=== PATIENT | male | born 1990 | race African-American/Black ===

== ENCOUNTER 2023-08-06 18:37 | Emergency (ER) | payer OTHER, SELFPAY ==
[2023-08-06 19:20] VITALS: BP 133/88; PULSE 67; RESP 20; TEMP 36; O2SAT 99; BMI 25.0
--- NOTE | 2023-08-06 19:21 | ED_ITS ---
HPI - General Adult General Chief complaint: Nausea/Vomiting/Diarrhea Stated complaint: vomiting/dizziness past 2 days Time Seen by Provider: 08/07/23 00:07 Source: patient Mode of arrival: ambulatory Limitations: no limitations History of Present Illness ED Provider: watson JACOBO narrative: Patient otherwise healthy been nauseated vomiting for last 24 hours multiple times no diarrhea patient has smoked marijuana but never had similar problem in the past no fever no chills no urinary complaints Related Data Previous Rx's ?Medication ?Instructions ?Recorded ondansetron 4 mg disintegrating 4 mg PO Q6-8H PRN nausea and 08/07/23 tablet vomiting #10 tabs Allergies Allergy/AdvReac Type Severity Reaction Status Date / Time No Known Allergies Allergy Verified 08/06/23 19:22 Review of Systems 2 Review of Systems: Yes all other systems are reviewed and are negative [facility] Social History Social History Advance Directives: No Advance Directives Information Provided: No Do you have a plan to hurt others: No Plan Physical Exam ED Vital Signs: Vital Signs - 24 hr 08/06/23 19:20 08/07/23 00:26 Temperature 96.8 F 97.7 F Pulse Rate 67 64 Respiratory Rate 20 16 Blood Pressure 133/88 145/68 H Pulse Oximetry 99 98 Oxygen Delivery Method Room Air Room Air BMI result Body Mass Index 25.0 Appearance: Alert. Oriented X3. No acute distress. Eyes: No pallor or icterus ENT: Pharynx normal. Oral Mucosa moist Neck: Normal inspection. Neck supple. CVS: Normal heart rate and rhythm. Pulses normal. Respiratory: No respiratory distress. Equal air entry bilateral, no wheezing/rales/rhonchi Abdomen: Soft and nontender. Bowel sounds are present, no mass palpable, no CVA tenderness Skin: Skin warm and dry. Normal skin color. Normal skin turgor. Extremities: No lower extremity edema. No calf tenderness Neuro: Oriented X 3. Course Course Course Narrative: This is a Rapid Medical Examination (RME) performed by Jeimy Reid PA-C in triage. Full HPI, ROS, assessment and treatment plan per primary provider in the Main ED. 32 yo male here for eval of nausea and vomiting x2 days. poor PO intake secondary to vomiting. unable to keep anything down. endorses smoking marijuana however when he has these episodes, is not able to smoke. admits hot showers occasionally help his symptoms. no recent travel outside [place]. admits to assoc episode of dizziness while at work today. no chest pain, HARDING, vision changes, palpitations, syncope. denies fever/chills, diarrhea, abd pain. abd soft, ND/NT, no rebound or guarding. normoative bs x4 Plan: labs, viral serology Medications Administered Discontinued Medications Generic Name Dose Route Start Last Admin Trade Name Serenity PRN Reason Stop Dose Admin Ondansetron HCl 4 mg 08/07/23 00:18 08/07/23 00:52 Ondansetron Odt 4 Mg Tab.Rapdis TRANSLINGU 08/07/23 00:19 4 mg ONCE ONE Administration Medical Decision Making Medical Decision Making [facility] Narrative: Patient has acute vomiting likely viral no focal tenderness in the abdomen improved after Zofran while labs are stable will discharge patient home advised to drink plenty of fluids tried to stop cannabis Differential Diagnosis Differential Diagnoses: The differential diagnosis associated with the presentation includes Gastroenteritis/viral syndrome Lab Data [facility] Lab Attestation statement: I reviewed the patient's lab results. 08/06/23 19:42 08/06/23 19:42 Labs: Lab Results 08/06/23 Range/Units 19:42 WBC 12.2 H (4.8-10.8) X10*3/uL RBC 4.99 (4.60-5.80) X10*6/uL Hgb 15.1 (14.0-18.0) g/dl Hct 42.9 (42.0-52.0) % MCV 86.0 (80.0-98.0) fL MCH 30.3 (27.0-33.0) pg MCHC 35.2 (31.0-36.0) g/dl RDW 12.6 (11.0-16.0) % Plt Count 248 (160-400) X10*3/uL MPV 8.9 L (9.4-12.4) fL Immature Gran % (Auto) 0.3 (0.0-0.4) % Neut % (Auto) 81.6 H (45-73) % Lymph % (Auto) 12.1 L (20-40) % Pickett % (Auto) 5.3 (2-11) % Eos % (Auto) 0.3 (0-4) % Baso % (Auto) 0.4 (0-2) % Lymph # (Auto) 1.5 (1.2-4.9) X10*3/uL Pickett # (Auto) 0.6 (0.1-1.2) X10*3/uL Eos # (Auto) 0.0 (0.0-0.4) X10*3/uL Baso # (Auto) 0.1 (0.0-0.2) X10*3/uL Abs Immat Gran (auto) 0.04 H (0.00-0.03) X10*3/uL Absolute Neuts (auto) 9.9 H (2.0-8.3) x10*3/uL Absolute Nucleated RBC 0.000 (0.0-0.012) X10*3/uL Nucleated RBC % (auto) 0.0 (0.0-0.2) /100WBC Sodium 142 (135-145) mmol/L Potassium 3.8 (3.3-5.1) mmol/L Chloride 107 (96-108) mmol/L Carbon Dioxide 25 (22-29) mmol/L Anion Gap 14 (12-20) BUN 16 (9-16) mg/dL Creatinine 0.89 (0.5-1.4) mg/dL Estim Creat Clear Calc 103.6 Estimated GFR > 60 Random Glucose 91 (60-115) mg/dL Calcium 9.9 (8.4-10.2) mg/dL Magnesium 2.3 (1.6-2.6) mg/dL Total Bilirubin 0.5 (0.0-1.0) mg/dL AST 53 H (5-37) U/L ALT 38 (0-40) U/L Alkaline Phosphatase 53 (39-117) U/L Total Protein 7.5 (6.5-8.0) g/dL Albumin 4.8 (3.5-5.0) g/dL Lipase 15 (8-78) U/L Influenza Type A (PCR) NEGATIVE (Negative) Influenza Type B (PCR) NEGATIVE (Negative) RSV RNA Qual (PCR) NEGATIVE (Negative) SARS-CoV-2 RNA (RT-PCR) NEGATIVE (Negative) Discharge Plan Discharge Clinical Impression: Gastroenteritis Patient Disposition: Home, Self-Care Instructions: Acute Nausea and Vomiting (ED) Additional Instructions: Drink plenty of fluids Medicine for nausea as prescribed Report to ER if not better Prescriptions: New ondansetron 4 mg tablet,disintegrating 4 mg PO Q6-8H PRN (Reason: nausea and vomiting) Qty: 10 0RF Print Language: Yakut
[2023-08-06 19:45] LABS: MANUAL DIFF FLAG NO
[2023-08-06 19:47] LABS: Basophils Absolute Auto 0.1 X10*3/uL (0.0-0.2); Basophils Percent Auto 0.4 % (0-2); Eosinophils Percent Auto 0.3 % (0-4); Hematocrit 42.9 % (42.0-52.0); Hemoglobin 15.1 g/dl (14.0-18.0); Imm Gran Abs Auto 0.04 X10*3/uL (0.00-0.03); Imm Gran Pct Auto 0.3 % (0.0-0.4); Lymphocytes Absolute Auto 1.5 X10*3/uL (1.2-4.9); Lymphocytes Percent Auto 12.1 % (20-40); Mean Corpuscular HGB Conc 35.2 g/dl (31.0-36.0); Mean Corpuscular Hemoglobin 30.3 pg (27.0-33.0); Mean Platelet Volume 8.9 fL (9.4-12.4); Monocytes Absolute Auto 0.6 X10*3/uL (0.1-1.2); Monocytes Percent Auto 5.3 % (2-11); Neutrophils Absolute Auto 9.9 x10*3/uL (2.0-8.3); Neutrophils Percent Auto 81.6 % (45-73); Platelet Count 248 X10*3/uL (160-400); Red Blood Count 4.99 X10*6/uL (4.60-5.80); Red Cell Distribution Width 12.6 % (11.0-16.0); White Blood Count 12.2 X10*3/uL (4.8-10.8)
[2023-08-06 20:16] LABS: Alanine Aminotransferase 38 U/L (0-40); Albumin Level 4.8 g/dL (3.5-5.0); Alkaline Phosphatase 53 U/L (39-117); Anion Gap 14 (12-20); Aspartate Amino Transferase 53 U/L (5-37); Bilirubin Total 0.5 mg/dL (0.0-1.0); Blood Urea Nitrogen 16 mg/dL (9-16); Calcium 9.9 mg/dL (8.4-10.2); Carbon Dioxide 25 mmol/L (22-29); Chloride 107 mmol/L (96-108); Creatinine Clr Calc Pharmacy 103.6; Estimated Glomerular Filt Rate > 60; Glucose Random 91 mg/dL (60-115); Lipase 15 U/L (8-78); Magnesium 2.3 mg/dL (1.6-2.6); Potassium 3.8 mmol/L (3.3-5.1); Sodium 142 mmol/L (135-145); Total Protein 7.5 g/dL (6.5-8.0)
[2023-08-06 20:31] LABS: Influenza A PCR NEGATIVE (Negative); Influenza B PCR NEGATIVE (Negative); Resp Syncy Virus RNA Qual PCR NEGATIVE (Negative); SARS COV2 PCR INHOUSE NEGATIVE (Negative)
[2023-08-07 00:26] VITALS: BP 145/68; PULSE 64; RESP 16; TEMP 36.5; O2SAT 98
[2023-08-07] MEDS: Ondansetron ODT 4 MG TAB.RAPDIS TRANSLINGU (00:52)
== END 2023-08-07 02:21 | disposition home or self-care (01) ==
PROVIDERS: Physician Assistant Medical; Emergency Provider Internal Medicine
DX: K52.9 Noninfective gastroenteritis and colitis, unspecified (principal); R11.2 Nausea with vomiting, unspecified; F12.10 Cannabis abuse, uncomplicated; Z03.818 Encounter for observation for suspected exposure to other biological agents ruled out
CPT/HCPCS: 0241U; 36415; 80053; 83690; 83735; 85025; 99283

== ENCOUNTER 2024-04-28 12:20 | Outpatient (REF) | payer MEDICAID, SELFPAY ==
[2024-04-28 13:27] LABS: Hematocrit 43.4 % (42.0-52.0); Hemoglobin 14.9 g/dl (14.0-18.0); Mean Corpuscular HGB Conc 34.3 g/dl (31.0-36.0); Mean Corpuscular Hemoglobin 29.6 pg (27.0-33.0); Mean Corpuscular Volume 86.3 fL (80.0-98.0); Mean Platelet Volume 9.1 fL (9.4-12.4); Platelet Count 272 X10*3/uL (160-400); Red Blood Count 5.03 X10*6/uL (4.60-5.80); Red Cell Distribution Width 12.4 % (11.0-16.0)
[2024-04-28 13:40] LABS: Estimated Average Glucose 105 mg/dL; Hemoglobin A1C 134.2815 umol/L; Hemoglobin A1c % 5.3 % (<6.0)
[2024-04-28 14:13] LABS: Alanine Aminotransferase 34 U/L (0-40); Albumin Level 4.7 g/dL (3.5-5.0); Alkaline Phosphatase 51 U/L (39-117); Anion Gap 11 (12-20); Aspartate Amino Transferase 40 U/L (5-37); Bilirubin Direct 0.2 mg/dL (0.0-0.5); Bilirubin Total 0.6 mg/dL (0.0-1.0); Blood Urea Nitrogen 17 mg/dL (9-16); Calcium 9.7 mg/dL (8.4-10.2); Carbon Dioxide 28 mmol/L (22-29); Chloride 107 mmol/L (96-108); Cholesterol 138 mg/dL (<200); Estimated Glomerular Filt Rate > 60; Glucose Random 51 mg/dL (60-115); HDL Cholesterol 41 mg/dL (>40); LDL Cholesterol Calculated 88 mg/dL (<100); Potassium 3.9 mmol/L (3.3-5.1); Sodium 142 mmol/L (135-145); Total Protein 7.8 g/dL (6.5-8.0); Triglycerides 46 mg/dL (<150)
[2024-04-28 14:22] LABS: Free T4 (Free Thyroxine) 1.05 ng/dL (0.71-1.85); Thyroid Stimulating Hormone 1.64 uIU/mL (0.32-4.0)
--- OUTSIDE RECORDS SUMMARY | 2024-04-28 15:28 | XMS_ITS | Encounter Summary ---
Author Organization [employer] [facility] Address [address] [place] [address] [address] [place] [address] Care Team Providers Care Dust Puller Name Role Phone Unavailable Primary Care Provider Unavailabl e Reason for Visit * Reason Comments Pre-visit Planning (Unable to reach for PVP screening, LVM) Encounter Details Date Type Department Care Team (Late Contact Info) Description 04/16/2024 Patient Outreach [facility] [address] [place] [id number] Amy Ramos DO [address] [place], [place] [phone] Pre-visit Planning ((Unable to reach for PVP screening, LVM)) Social History Tobacco Use Types Packs/Day Years Used Date Smoking Tobacco: Never Assessed Sex and Gender Information Value Date Recorded Sex Assigned at Male 12/25/2021 10:38 AM EDT Legal Sex Male 10:38 AM EDT Gender Identity Male 12/25/2021 10:38 AM EDT Sexual Orientation Choose not to disclose 2021 10:38 AM EDT documented as of this encounter Progress Notes * Amalia Lentz - 04/16/2024 10:00 AM EST MICHOACANO Holland. Placed outbound call to patient to complete pre-visit planning. No answer at this time. Patient name and were not confirmed. CC left voicemail requesting return call. Direct contact information provided. documented in this encounter Plan of Treatment Upcoming Encounters Date Type Department Care Team (Late Contact Info) Description 07/03/2024 10:15 AM EDT Office Visit [facility] [address] [place] [id number] Amy Ramos DO [address] [place] [address] documented as of this encounter Visit Diagnoses Not on filedocumented in this encounter
--- OUTSIDE RECORDS SUMMARY | 2024-04-28 15:28 | XMS_ITS | Encounter Summary ---
Author Organization [employer] Address [address] [place] [address] [address] [place] [address] Care Team Providers Care Composition Roll Maker And Cutter Name Role Phone Amy Ramos Primary Care Provider Encounter Details Date Type Department Care Team (Latest Contact Info) Description 04/28/2024 Travel Social History Tobacco Use Types Packs/Day Years Used Date Smoking Tobacco: Never Smokeless Tobacco: Never Alcohol Use Standard Drinks/Week Comments Never 0 (1 standard drink = 0.6 oz pur e alcohol) Depression Answer Date Recorded Patient Health Questionnaire-9 Score 0 04/28/2024 Patient Health Questionnaire-9 Score 0 04/28/2024 Last PHQ-9: Questionnaire Data Not on file 0 04/28/2024 Housing Stability Answer Date Recorded What is your housing situation today? I have krista whalen 04/28/[address] you li ve. Do you have problems with any of the following? None of the above 04/28/2024 Food Insecurity Answer Date Recorded Within the past 12 months, y ou worried that your food would run out before you got money to buy more: Never True 04/28/2024 Within the past 12 months,th e food you bought just didn't last and you didn't have enough money to get more: Never True 05/2024 Transportation Answer Date Recorded In the past 12 months, has l ack of transportation kept you from medical appts, meetings, work or from getting things needed for daily living? No 04/28/2024 Utilities Answer Date Recorded In the past 12 months, has t he electric, gas, oil or water company threatened to shut off services in your home? No 04/28/2024 Depression Answer Date Recorded Patient Health Questionnaire-2 Score 0 04/28/2024 Internet Access Answer Date Recorded Internet Access Q1 Yes 04/28/2024 Internet Access Q2 Not on file 04/28/2024 Sex and Gender Information Value Date Recorded Sex Assigned at Male 12/25/2021 10:38 AM EDT Legal Sex Male 10:38 AM EDT Gender Identity Male 12/25/2021 10:38 AM EDT Sexual Orientation Choose not to disclose 2021 10:38 AM EDT documented as of this encounter Plan of Treatment Upcoming Encounters Date Type Department Care Team (Late st Contact Info) Description 07/03/2024 10:15 AM EDT Office Visit [facility] [address] [place] [address] Amy Ramos DO [address] [place] [address] documented as of this encounter Visit Diagnoses Not on filedocumented in this encounter Additional Health Concerns Assessment Noted Time PHQ-9 Depression Total Score: 0 04/29/19 10:44 AM EST documented as of this encounter Care Teams Composition Roll Maker And Cutter Relationship Specialty Start Date End Date Amy Ramos DO [address] [place] [id number] PCP - General Family Medicine 04/28/24 documented as of this encounter
--- OUTSIDE RECORDS SUMMARY | 2024-04-28 15:28 | XMS_ITS | Clinical Summary ---
Author Organization [facility] Address [address] [place] [address] Care Team Providers Care Sales Store Checker Name Role Phone Daljit Rader Primary Care Provider [phone] Source Comments PLEASE NOTE, if this patient is a minor, it may be UNLAWFUL to discuss sensitive information that is contained in these records (such as FAMILY PLANNING, MENTAL HEALTH or SUBSTANCE ABUSE) with the minor patient's parent or other person without the patient's specific authorization.[facility] Allergies No known active allergies Medications hydrOXYzine (ATARAX) 10 mg tabletIndication s:Itching Take 1 Tab by mouth 3 (three) times daily as needed for itching. 40 Tab 0 09/17/2014 Active loratadine (CLARITIN) 10 mg tabletIndication s:Itching Take 1 Tab by mouth once daily as needed for allergies. 30 Tab 2 09/17/2014 Active guaiFENesin 400 mg tabIndications:V iral upper respiratory tract infection Take 1 Tab by mouth every 4 (four) hours as needed for cough 18 Tab 06/16/2018 Active naproxen (NAPROSYN) 250 mg tabletIndication s:Viral upper respiratory tract infection Take 1 Tab by mouth 2 (two) times daily with a meal 20 Tab 06/16/2018 Active phenazopyridine (PYRIDIUM) 100 mg tabletIndication s:Dysuria Take 1 Tablet by mouth 2 (two) times daily 10 Tablet 02/29/2020 Active Active Problems No known active problems Resolved Problems Problem Noted Date Diagnosed Date Resolved Date Chlamydia infection 04/08/2014 05/29/19 19 Marijuana abuse 03/26/2014 05/28/2018 Dysuria 03/26/2014 05/28/2018 Family History Medical History Relation Name Comments Diabetes Maternal Grandmother Depression Mother Diabetes Paternal Grandmother Relation Name Status Comments Maternal Grandmother Mother Paternal Grandmother Social History Tobacco Use Types Packs/Day Years Used Date Smoking Tobacco: Former Smokeless Tobacco: Never Alcohol Use Standard Drinks/Week Comments Yes 0 (1 standard drink = 0.6 oz pur e alcohol) socially Social Connections Answer Date Recorded Social Connections and Isolation 0 10/19/2018 Financial Resource Strain Answer Date R ecorded Financial Resource Strain 0 2018 Stress Answer Date Recorded Stress 0 10/19/2018 Physical Activity Answer Date Recorded Physical Activity 0 10/19/2018 Food Insecurity Answer Date Recorded Food 0 10/19/2018 Transportation Needs Answer Date Record ed Transportation 0 10/19/2018 Housing Stability Answer Date Recorded Housing 0 10/19/2018 Safety and Environment Answer Date Kee rded Safety 0 10/19/2018 Utilities Answer Date Recorded Utilities 0 10/19/2018 Employment Answer Date Recorded Employment 0 10/19/2018 Sex and Gender Information Value Date Recorded Sex Assigned at Male 01/02/2017 12:04 PM PST Legal Sex Male 11:58 AM PST Gender Identity Male 01/02/2017 12:04 PM PST Sexual Orientation Straight 01/02/2017 12 :04 PM PST Occupation Industry Job Start Date Job End Date unemployed Not on file Not on file Not on file Last Filed Vital Signs Vital Sign Reading Time Taken Comments Blood Pressure 112/80 02/29/2020 1:22 PM EST Pulse 66 02/29/2020 1:22 PM EST Temperature 36.8 ??C (98.3 ??F) 02/29/2020 1:22 PM ES T Respiratory Rate 16 02/29/2020 1:22 PM EST Oxygen Saturation 97% 08/17/2019 2:55 PM EDT Inhaled Oxygen Concentration - - Weight 68.5 kg (151 lb) 02/29/2020 1:22 PM EST Height 165.1 cm (5' 5 ) 02/29/2020 1:22 PM EST Body Mass Index 25.13 02/29/2020 1:22 PM EST Plan of Treatment Health Maintenance Due Date Last Done Comments Tobacco Screening 1990 Imm-DTaP/Tdap/Td (1 - Tdap) 2009 Annual Preventive Care Visit 08/16/2020, 05/28/2018, 01/02/2017, Additional history exists Hypertension Screening (#1) 02/28/2023 03/26/2014 [id number] ( season) 2023 Imm-Influenza (#1) 2023 03/26/2014 (Declined) Alcohol and Drug Screen 02/26/2024 08/17/19 20, 05/28/2018, 01/02/2017, Additional history exists Depression Annual Screen 02/26/2024 020, 05/28/2018, 01/02/2017, Additional history exists HIV Screening Completed 08/20/2019, 12/27, 06/11/2014, Additional history exists Hepatitis C Screening Completed 08/20/2019, 015 Procedures Procedure Name Priority Date/Time Associated Diagnosis Comments ANTIBODY HIV-1&HIV-2 SINGLE RESULT Routine 08/20/2019 1:10 PM EDT Routine adult health maintenance Exposure to STD HEPATITIS A,B,C PANEL Routine 08/20/2019 1:10 PM EDT Routine adult health maintenance Exposure to STD from Last 3 Months or Most Recently Relevant to Health Maintenance Results * (ABNORMAL) HEPATITIS A,B,C PANEL (08/20/2019 1:10 PM EDT) HEPATITIS B SURFACE ANTIBODY POSITIVE(A) NEGATIVE [facility] HEPATITIS B SURFACE ANTIGEN NEGATIVE NEGATIVE [facility] Comment: Over the counter supplements containing high doses of biotin may interfere with this assay. ??If interference is suspected, patients shoud be retested after refraining from biotin supplements for 72 hours. HEPATITIS C VIRUS DIAGNOSTIC NEGATIVE NEGATIVE [facility] HEPATITIS B CORE ANTIBODY NEGATIVE NEGATIVE [facility] HEPATITIS A ANTIBODY TOTAL NEGATIVE NEGATIVE [facility] Comment: Over the counter supplements containing high doses of biotin may interfere with this assay. ??If interference is suspected, patients shoud be retested after refraining from biotin supplements for 72 hours. Blood specimen (specimen) Blood / Unknown 08/20/2019 1:10 PM EDT 08/20/2019 3:01 PM EDT [facility] 08/20/2019 3:55 PM EDT [employer], [place] [address] Media/Instructional Designer - Elda Landis MD PT ID [id number] ORD# [id number] [facility] - BLOOD DRAW Edited Result - Final Performing Organization Address City/[facility]/ZIP Co de Phone Number [address] [address], [place] [phone] * HIV-1 & HIV-2 ANTIBODIES (08/20/2019 1:10 PM EDT) [facility] HIV 1 AND 2 ANTIBODY SCREEN NEGATIVE NEGATIVE [facility] Comment: This assay is a 4th generation assay allowing for earlier detection of HIV infection by detecting the presence of the HIV-1 p24 antigen as well as the traditional antibodies to HIV type 1 (including group O) and type 2. ??Use of a 4th generation assay is the current CDC recommendation for HIV screening. Blood specimen (specimen) Blood / Unknown 08/20/2019 1:10 PM EDT 08/20/2019 3:01 PM EDT [facility] 08/20/2019 4:24 PM EDT [employer], a member of [address] [address] Media/Instructional Designer - Elda Landis MD PT ID [id number] ORD# [id number] [facility] - BLOOD DRAW Edited Result - Final [address] [address], [place] [phone] from Last 3 Months or Most Recently Relevant to Health Maintenance Insurance [place] MEDICAID Care Teams Sales Store Checker Relationship Specialty Start Date End Date Daljit Rader PA [address] [place] [address] PCP - General Internal Medicine 11/01/16
--- OUTSIDE RECORDS SUMMARY | 2024-04-28 15:28 | XMS_ITS | Clinical Summary ---
Author Organization [employer] [facility] Address [address] [place] [address] [address] [place] [address] Care Team Providers Care Helmet Hat Brim Cutter Name Role Phone Amy Ramos DO Primary Care Provider Allergies No known active allergies Medications omeprazole OTC (PriLOSEC OTC) 20 MG EC tablet Take 1 tablet (20 mg) by mouth before breakfast and before evening meal. Do not crush, chew, or split. 60 tablet 3 04/29/19 25 026 Active pantoprazole (ProtoNix) 40 MG EC tablet Take 40 mg by mouth. 12/11/19 24 025 Discontinued Active Problems Problem Noted Date Diagnosed Date BMI 26.0-26.9,adult 04/28/2024 Chronic gastroesophageal reflux disease 04/29/19 25 Encounters Date Type Department Care Team Description 04/28/2024 10:45 AM EST Office Visit [facility] [address] [place] [phone] Amy Ramos DO Routine history and physical examination of adult (Primary Dx); Chronic GERD; BMI 26.0-26.9,adult; Dietary counseling; Exercise counseling; Encounter for immunization 04/28/2024 Telephone [facility] [address] [place] [address] [phone] Amy Ramos DO critical result 04/28/2024 Travel 04/16/2024 Patient Outreach [facility] [address] [place] [address] [phone] Amy Ramos DO Pre-visit Planning ((Unable to reach for PVP screening, LVM)) 03/13/2024 Telephone [facility] [address] [place] [address] [phone] Elis Mesa MA New Patient Appt. 03/13/2024 Travel 03/03/2024 Telephone [facility] [address] [place] [address] Lj Contreras MD New patient appt. from Last 3 Months Immunizations Name Administration Dates Next Due Influenza Whole 11/01/2011 Influenza, IIV3, injectable 12/24/2005 Td (adult), unspecified 04/05/2003 Tdap 04/28/2024 Family History Medical History Relation Name Comments Diabetes Father Hypertension Father Stomach cancer Father Diabetes Mother Hypertension Mother Cancer Paternal Grandmother Relation Name Status Comments Father Mother Paternal Grandmother Social History Tobacco Use Types Packs/Day Years Used Date Smoking Tobacco: Never Smokeless Tobacco: Never Tobacco Cessation:Counseling Given: Not Answered Alcohol Use Standard Drinks/Week Comments Never 0 (1 standard drink = 0.6 oz pur e alcohol) Depression Answer Date Recorded Patient Health Questionnaire-9 Score 0 04/28/2024 Patient Health Questionnaire-9 Score 0 04/28/2024 Last PHQ-9: Questionnaire Data Not on file 0 04/28/2024 Housing Stability Answer Date Recorded What is your housing situation today? I have krista marlee 04/28/[address] you li [...] not to disclose 2021 10:38 AM EDT Last Filed Vital Signs Vital Sign Reading Time Taken Comments Blood Pressure 128/60 04/28/2024 10:42 AM EST Pulse 100 04/28/2024 10:42 AM EST Temperature 36.8 ??C (98.3 ??F) 04/28/2024 10:[address] Respiratory Rate 21 04/28/2024 10:42 AM EST Oxygen Saturation 99% 04/28/2024 10:42 AM EST Inhaled Oxygen Concentration - - Weight 68.7 kg (151 lb 8 oz) 04/28/2024 10:42 AM EST Height 160 cm (5' 3 ) 04/28/2024 10:42 AM EST Body Mass Index 26.84 04/28/2024 10:42 AM EST Plan of Treatment Upcoming Encounters Date Type Department Care Team (Late st Contact Info) Description 07/03/2024 10:15 AM EDT Office Visit [facility] [address] [place] [phone] Amy Ramos DO [address] [place] [address] Health Maintenance Due Date Last Done Comments HIV Screening 1990 Family Planning (PISQ) 2005 Hepatitis C Screening 2008 Hepatitis B Vaccines (1 of 3 - 19+ 3-dose series) 2009 COVID-19 Vaccine (2023-2 5 season) 2023 08/05/2020, 07/08/2020 Influenza Vaccine (#1) 2023 2, 12/24/2005 Alcohol/Substance Use Screening 04/28/2025 04/28/2024 Depression Screening 04/28/2025 04/28/2024, 04/28/2024 SDOH Screening 04/28/2025 04/28/2024 Tobacco Screening 04/28/2025 04/28/2024 DTaP/Tdap/Td Vaccines (3 - T d or Tdap) 04/28/2034 04/28/2024, 04/05/2003 Zoster Vaccines (1 of 2) 2040 RSV Patients and Patients Aged 60 years or older (1 - 1-dose 75+ series) 2065 HIB Vaccines Aged Out No longer eligi ble based on patient's age to complete this topic HPV Vaccines Aged Out No longer eligi ble based on patient's age to complete this topic Hepatitis A Vaccines Aged Out No long er eligible based on patient's age to complete this topic IPV Vaccines Aged Out No longer eligi ble based on patient's age to complete this topic Meningococcal Vaccine Aged Out No elizabeth yolanda eligible based on patient's age to complete this topic Pneumococcal Vaccine: Pediatrics (0 to 5 Years) and At-Risk Patients (6 to 49) Years) Aged Out No longer eligible b ased on patient's age to complete this topic RSV under 20 months Aged Out No longe r eligible based on patient's age to complete this topic Rotavirus Vaccines Aged Out No longer eligible based on patient's age to complete this topic Procedures Procedure Name Priority Date/Time Associated Diagnosis Comments BASIC METABOLIC PANEL Routine 04/28/2024 12:27 PM EST Routine history and physical examination of adult Chronic GERD BMI 26.0-26.9,adult CBC Routine 04/28/2024 12:27 PM EST Routine history and physical examination of adult Chronic GERD BMI 26.0-26.9,adult HEMOGLOBIN A1C Routine 04/28/2024 12:27 PM EST Routine history and physical examination of adult Chronic GERD BMI 26.0-26.9,adult HEPATIC FUNCTION PANEL Routine 04/28/2024 12:27 PM EST Routine history and physical examination of adult Chronic GERD BMI 26.0-26.9,adult VITAMIN D,25-OH,TOTAL,IA Routine 04/28/2024 12:27 PM EST Routine history and physical examination of adult Chronic GERD BMI 26.0-26.9,adult TSH Routine 04/28/2024 12:27 PM EST Routine history and physical examination of adult Chronic GERD BMI 26.0-26.9,adult LIPID PANEL, STANDARD Routine 04/28/2024 12:27 PM EST Routine history and physical examination of adult Chronic GERD BMI 26.0-26.9,adult T4, FREE Routine 04/28/2024 12:27 PM EST Routine history and physical examination of adult Chronic GERD BMI 26.0-26.9,adult from Last 3 Months Results * Vitamin D, 25-Hydroxy, Total, Immunoassay (04/28/2024 12:27 PM EST) Vitamin D 25-OH Total 33.0 >30 ng/mL [facility] Comment:Health Based Referen ce Values*< 20 ng/mL Lkyiqntvl08-04 ng/mL Insufficient> 30 ng/mL Sufficient*Tyrone SIEGEL. N Engl J Med. 2007;357:266-280Care must be taken in interpreting Vitamin D results fromdifferent laboratories and methodologies. Published datademonstrated that results from patients undergoinghemodialysis may show a negative bias when tested withvarious automated 25-OH vitamin D assays when compared toLC-MS/MS.When testing samples from patients whose predominant form ofVitamin D is Vitamin D2, such as patients receiving VitaminD2 supplementation, results that are subtherapeutic shouldbe confirmed with another method such as LC-MS/MS. Blood Venous blood specimen / Unknown 04/28/2024 12:27 PM EST 04/28/2024 1:12 PM EST us Amy Ramos DO LAB BLOOD ORDERABLES Final R esult [facility] [address] [place] [phone] * (ABNORMAL) CBC (04/28/2024 12:27 PM EST) White Blood Count 10.0 4.8 - 10.8 X10*3/uL [facility] Red Blood Count 5.03 4.60 - 5.80 X10*6/uL [facility] Hemoglobin 14.9 14.0 - 18.0 g/dl [facility] Hematocrit 43.4 42.0 - 52.0 % [facility] Mean Corpuscular Volume 86.3 80.0 - 98.0 fL [facility] Mean Corpuscular Hemoglobin 29.6 27.0 - 33.0 pg [facility] Mean Corpuscular HGB Conc 34.3 31.0 - 36.0 g/dl [facility] Red Cell Distribution Width 12.4 11.0 - 16.0 % [facility] Platelet Count 272 160 - 400 X10*3/uL [facility] Mean Platelet Volume 9.1(L) 9.4 - 12.4 fL [facility] NRBC Pct Auto 0.0 0.0 - 0.2 /100WBC [facility] NRBC Abs Auto 0.000 0.0 - 0.012 X10*3/uL [facility] Blood Venous blood specimen / Unknown 04/28/2024 12:27 PM EST 04/28/2024 1:12 PM EST Amy Ramos H2scan LAB BLOOD ORDERABLES Final R esult Performing Organization Address City/[facility]/ZIP Co de Phone Number [facility] [address] [place] [phone] * TSH (04/28/2024 12:27 PM EST) Thyroid Stimulating Hormone 1.64 0.32 - 4.0 uIU/mL [facility] Comment:TSH 3rd Generation ( [facility]) Blood Venous blood specimen / Unknown 04/28/2024 12:27 PM EST 04/28/2024 1:12 PM EST Amy Ramos H2scan LAB BLOOD ORDERABLES Final R esult [facility] [address] [place] [phone] * T4, Free (04/28/2024 12:27 PM EST) Free T4 (Free Thyroxine) 1.05 0.71 - 1.85 ng/dL [facility] Blood Venous blood specimen / Unknown 04/28/2024 12:27 PM EST 04/28/2024 1:12 PM EST Amy Ramos LAB BLOOD ORDERABLES Final R esult Performing Organization Address City/[facility] Co de Phone Number [facility] [address] [place] [phone] * Hemoglobin A1c (04/28/2024 12:27 PM EST) Hemoglobin A1c 5.3 <6.0 % [facility] Comment:Hemoglobin A1C Refer ence Range Adults: 4.8 - 6.0 % Non diabetic: < 6.0 % Goal: < 7.0 %Additional Action Suggested: > 8.0 %Note: Hemoglobin A1c results are invalid for patients with abnormal amounts of HbF. Blood transfusions may impact the HbA1c concentration in the patient sample. Estimated Average Glucose 105 mg/dL [facility] Comment:eAG = Estimated ave rage glucose which is %A1C expressed asaverage glucose, using the formula of the [id number] Glucose study (ADAG), Diabetes Care, Vol.31,#8,2007 Blood Venous blood specimen / Unknown 04/28/2024 12:27 PM EST 04/28/2024 1:12 PM EST Amy Ramos DO LAB BLOOD ORDERABLES Final R esult Performing Organization Address City/[facility] Co de Phone Number [facility] [address] [place] [phone] * (ABNORMAL) Hepatic Function Panel (04/28/2024 12:27 PM EST) Pathologist [facility] Bilirubin, Total 0.6 0.0 - 1.0 mg/dL [facility] Bilirubin, Direct 0.2 0.0 - 0.5 mg/dL [facility] Aspartate Amino Transferase 40(H) 5 - 37 U/L [facility] Alanine Aminotransferase 34 0 - 40 U/L [facility] Total Protein 7.8 6.5 - 8.0 g/dL [facility] Albumin Level 4.7 3.5 - 5.0 g/dL [facility] Alkaline Phosphatase 51 39 - 117 U/L [facility] Blood Venous blood specimen / Unknown 04/28/2024 12:27 PM EST 04/28/2024 1:12 PM EST us Amy Ramos DO LAB BLOOD ORDERABLES Final R esult [facility] [address] [place] [phone] * Lipid Panel, Standard (04/28/2024 12:27 PM EST) Triglycerides 46 <150 mg/dL [facility] Comment:Desirable Triglyceri de: less than 150 mg/dLBorderline High Triglyceride 150-199 mg/dLHigh Triglyceride: 200-499 mg/dLVery High Triglyceride: greater than or equal to 5OO mg/dL Cholesterol 138 <200 mg/dL [facility] Comment:Desirable Cholestero l: less than 200 mg/dLBorderline High Cholesterol: 200-239 mg/dLHigh Cholesterol: greater than 239 mg/dL LDL Cholesterol Calculated 88 <100 mg/dL [facility] Comment:Desirable LDL: less than 100 mg/dLNear Optimal/Above Optimal LDL: 110- 129 mg/dLBorderline High LDL: 130-159 mg/dLHigh LDL: 160-189 mg/dLVery High LDL: greater than or equal to 190 mg/dL HDL Cholesterol 41 >40 mg/dL [facility] Comment:Desirable HDL: great er than 40 mg/dL Note: This HDL assay may give artificially low results in patients with liver disease. Blood Venous blood specimen / Unknown 04/28/2024 12:27 PM EST 04/28/2024 1:12 PM EST Amy Ramos DO LAB BLOOD ORDERABLES Final R esult Performing Organization Address [facility]/ZIP Co de Phone Number [facility] [address] [place] [phone] * (ABNORMAL) Basic Metabolic Panel (04/28/2024 12:27 PM EST) Sodium 142 135 - 145 mmol/L [facility] Potassium 3.9 3.3 - 5.1 mmol/L [facility] Chloride 107 96 - 108 mmol/L [facility] Carbon Dioxide 28 22 - 29 mmol/L [facility] Anion Gap 11(L) 12 - 20 [facility] Urea Nitrogen (BUN) 17(H) 9 - 16 mg/dL [facility] Creatinine, Serum 0.84 0.5 - 1.4 mg/dL [facility] Estimated Glomerular Filt Rate >60 [facility] Comment:Chronic Kidney Disea se: Estimated GFR < 60 mL/min/1.16y4Loigxo Kidney Disease: Estimated GFR < 15 mL/min/1.73m2 Glucose 51(LL) 60 - 115 mg/dL [facility] Comment:Critical value for G LUCOSE Results called to and read backby: DEIDRA Moore Person calling: DRAKE Date: 04/28/24Time:1412 Calcium 9.7 8.4 - 10.2 mg/dL [facility] Blood Venous blood specimen / Unknown 04/28/2024 12:27 PM EST 04/28/2024 1:12 PM EST Amy Ramos DO LAB BLOOD ORDERABLES Final R esult Performing Organization Address [facility]/ZIP Co de Phone Number [facility] [address] [place] [phone] from Last [address] [place] [id number] [facility] [address] [place] [address] [id number] [place] [address] [id number] [place] [phone] Care Teams Helmet Hat Brim Cutter Relationship Specialty Start Date End Date Amy Ramos DO [address] [place] [phone] PCP - General Family Medicine 04/28/24
--- OUTSIDE RECORDS SUMMARY | 2024-04-28 15:28 | XMS_ITS | Encounter Summary ---
Author Organization [employer] Address [address] [place] [address] [address]t [place] [address] Care Team Providers Care Agency Sales Development Associate Name Role Phone Amy Ramos DO Primary Care Provider [phone] Reason for Visit * Reason Onset Date Comments critical result 04/28/2024 Encounter Details Date Type Department Care Team ([facility] st Contact Info) Description 04/28/2024 Telephone [facility] [address] [place], [place] [phone] Amy Ramos DO [address] [place], [place] [phone] critical result Social History Tobacco Use Types Packs/Day Years [...] AM EDT documented as of this encounter Miscellaneous Notes * Telephone Encounter - Erica Almeida RN - 04/28/2024 3:01 PM EST Discussed critical result of BG [address] Ramos. [address]. Ramos patient not a diagnosed diabetic, nor is he on BG lowering medications. Plan to re- attempt contacting patient tomorrow morning. Will re-task for re-attempt. * Telephone Encounter - Erica Almeida RN - 04/28/2024 2:35 PM EST Call placed to patient's emergency contact Marisela (Patient's mother) [phone]. Marisela reports she does not live with her son. She is not listed on HIPAA. Advised patient's Mom to have patient return clinic's call when she speaks to him. Finjan interpretor ID [id number] Brandin * Telephone Encounter - Erica Almeida RN - 04/28/2024 2:32 PM EST Call placed to patient [phone]. No answer, voicemail left requesting call back. * Telephone Encounter - Winter Hoskins RN - 04/28/2024 2:13 PM EST TC from Flore[facility] at [facility] lab. Critical result - glucose 51. documented in this encounter Plan of Treatment Upcoming Encounters Date Type Department Care Team (Late st Contact Info) Description 07/03/2024 10:15 AM EDT Office Visit [facility] [address] [place] [address] Amy Ramos DO [address] [place] [address] documented as of this encounter Visit Diagnoses Not on filedocumented in this encounter Additional Health Concerns Assessment Noted Time PHQ-9 Depression Total Score: 0 04/29/19 10:44 AM EST documented as of this encounter Care Teams Agency Sales Development Associate Relationship Specialty Start Date End Date Amy Ramos DO [address] [place] [address] PCP - General Family Medicine 04/28/24 documented as of this encounter
--- OUTSIDE RECORDS SUMMARY | 2024-04-28 15:28 | XMS_ITS | Clinical Summary ---
Author Organization [facility] Address [address] [place] [address] Care Team Providers Care Etcher Aircraft Name Role Phone Unavailable Primary Care Provider Unavailabl e Social History Tobacco Use Types Packs/Day Years Used Date Smoking Tobacco: Never Assessed Sex and Gender Information Value Date Recorded Sex Assigned at Not on file Legal Sex Male 4:34 AM EST Gender Identity Not on file Sexual Orientation Not on file Plan of Treatment Health Maintenance Due Date Last Done Comments DTaP,Tdap,and Td Vaccines (1 - Tdap) 2009 Hepatitis B Vaccines (1 of 3 - 19+ 3-dose series) 2009 COVID-19 Vaccine ( - 2023-2 5 season) 2023 Influenza Vaccine (#1) 2023 HIB Vaccines Aged Out No longer eligi [...] on patient's age to complete this topic MMR Vaccines Aged Out No longer eligi ble based on patient's age to complete this topic Meningococcal ACWY Vaccine Aged Out N o longer eligible based on patient's age to complete this topic Meningococcal B Vacine Aged Out No lo nger eligible based on patient's age to complete this topic Pneumococcal Vaccine: Pediat rics (0 to 5 Years) and At-Risk Patients (6 to 64 Years) Aged Out No longer eligible b ased on patient's age to complete this topic RSV Immunization Patients Un david 20 months Aged Out No longer eligible b ased on patient's age to complete this topic Varicella Vaccines Aged Out No longer eligible based on patient's age to complete this topic
--- OUTSIDE RECORDS SUMMARY | 2024-04-28 15:28 | XMS_ITS | Encounter Summary ---
Author Organization [facility] Address [address] [place] [address] [address] [place] [address] Care Team Providers Care Pattern Technician Name Role Phone Amy Ramos DO Primary Care Provider [phone] Reason for Referral * Consultation (Urgent) - Pending Review Specialty Diagnoses / Procedures Referred By Jus lama Referred To Contact Gastroenterology Diagnoses Chronic GERD Amy Ramos DO [address] [place] [address] Phone: tel: fax: Referral ID Status Reason Start Date Expiration Date Visits Requested Visits Authorized [id number] Pending Review Specialty Services Required 04/28/2024 04/28/2025 1 1 Encounter Details Date Type Department Care Team (Late st Contact Info) Description 04/28/2024 10:45 AM EST Office Visit [facility] [address] [place] [address] Amy Ramos DO [address] [place] [address] Routine history and physical examination of adult (Primary Dx); Chronic GERD; BMI 26.0-26.9,adult; Dietary counseling; Exercise counseling; Encounter for immunization Social History Tobacco Use Types Packs/Day Years [...] AM EDT documented as of this encounter Last Filed Vital Signs Vital Sign Reading [...] Mass Index 26.84 04/28/2024 10:42 AM EST documented in this encounter Plan of Treatment Upcoming Encounters Date Type Department Care Team (Late st Contact Info) Description 07/03/2024 10:15 AM EDT Office Visit [facility] [address] [place] [address] Amy Ramos DO [address] [place] [address] Scheduled Orders Name Type Priority Associated Diagnoses Orde r Schedule Hepatitis B surface antigen, EIA Lab Routine Routine history and physical examination of adult Chronic GERD BMI 26.0-26.9,adult Expected: 04/28/2024 (Approximate), Expires: 04/28/2025 Chlamydia/N. Gonorrhoeae RNA, TMA, Urogenitial Microbiology Routine Routine history and physical examination of adult Chronic GERD BMI 26.0-26.9,adult Ordered: 04/28/2024 HIV-1/2 Antigen and Antibodies, Fourth Generation, with Reflexes Lab Routine Routine history and physical examination of adult Chronic GERD BMI 26.0-26.9,adult Expected: 04/28/2024 (Approximate), Expires: 04/28/2025 Hepatitis C Antibody with Reflex to HCV, RNA, Quantitative, Real-Time PCR Lab Routine Routine history and physical examination of adult Chronic GERD BMI 26.0-26.9,adult Expected: 04/28/2024, Expires: 04/28/2025 RPR (Monitor) with Reflex to??Titer Lab Routine Routine history and physical examination of adult Chronic GERD BMI 26.0-26.9,adult Expected: 04/28/2024, Expires: 04/28/2025 Hepatitis B Surface Antibody, Qualitative Lab Routine Routine history and physical examination of adult Chronic GERD BMI 26.0-26.9,adult Expected: 04/28/2024 (Approximate), Expires: 04/28/2025 Hepatitis A Antibody, Total Lab Routine Routine history and physical examination of adult Chronic GERD BMI 26.0-26.9,adult Expected: 04/28/2024 (Approximate), Expires: 04/28/2025 Hepatitis B Core Antibody, Total Lab Routine Routine history and physical examination of adult Chronic GERD BMI 26.0-26.9,adult Expected: 04/28/2024 (Approximate), Expires: 04/28/2025 Helicobacter pylori, Urea Breath Test Lab Routine Chronic GERD Expected: 04/28/2024 (Approximate), Expires: 04/28/2025 Scheduled Referrals Name Type Priority Associated Diagnoses Order Schedule Referral to Gastroenterology Outpatient Referral Urgent Chronic GERD Expected: 04/28/2024 (Approximate), Expires: 04/28/2025 documented as of this encounter Procedures Procedure Name Priority Date/Time Associated Diagnosis Comments VITAMIN D,25-OH,TOTAL,IA Routine 04/28/2024 12:27 PM EST [...] examination of adult Chronic GERD BMI 26.0-26.9,adult BASIC METABOLIC PANEL Routine 04/28/2024 12:27 PM EST Routine history and physical examination of adult Chronic GERD BMI 26.0-26.9,adult documented in this encounter Results * (ABNORMAL) Basic Metabolic Panel (04/28/2024 12:27 PM EST) [facility] Sodium 142 135 - 145 mmol/L [facility] Potassium 3.9 3.3 - 5.1 mmol/L [facility] Chloride 107 96 - 108 mmol/L [facility] Carbon Dioxide 28 22 - 29 mmol/L [facility] Anion Gap 11(L) 12 - 20 [facility] Urea Nitrogen (BUN) 17(H) 9 - 16 mg/dL [facility] Creatinine, Serum 0.84 0.5 - 1.4 mg/dL [facility] Estimated Glomerular Filt Rate >60 [facility] Comment:Chronic Kidney Disea se: Estimated GFR < 60 mL/min/1.23t4Eqqcpl Kidney Disease: Estimated GFR < 15 mL/min/1.73m2 Glucose 51(LL) 60 - 115 mg/dL [facility] Comment:Critical value for G LUCOSE Results called to and read valeriey: DEIDRA Moore Person calling: OSCARJAIME Date: 04/28/24Time:1412 Calcium 9.7 8.4 - 10.2 mg/dL [facility] Blood Venous blood specimen / Unknown 04/28/2024 12:27 PM EST 04/28/2024 1:12 PM EST us Amy Ramos DO LAB BLOOD ORDERABLES Final R esult [facility] [address] [place] [phone] * (ABNORMAL) CBC (04/28/2024 12:27 PM EST) White Blood Count 10.0 4.8 - 10.8 X10*3/uL [facility] Red Blood Count 5.03 4.60 - 5.80 X10*6/uL [facility] Hemoglobin 14.9 14.0 - 18.0 g/dl [facility] Hematocrit 43.4 42.0 - 52.0 % [facility] Mean Corpuscular Volume 86.3 80.0 - 98.0 fL [facility] Mean Corpuscular Hemoglobin 29.6 27.0 - 33.0 pg [facility] Mean Corpuscular HGB Conc 34.3 31.0 - 36.0 g/dl [facility] Red Cell Distribution Width 12.4 11.0 - 16.0 % [facility] Platelet Count 272 160 - 400 X10*3/uL [facility] Mean Platelet Volume 9.1(L) 9.4 - 12.4 fL [facility] NRBC Pct Auto 0.0 0.0 - 0.2 /100WBC [facility] NRBC Abs Auto 0.000 0.0 - 0.012 X10*3/uL [facility] Blood Venous blood specimen / Unknown 04/28/2024 12:27 PM EST 04/28/2024 1:12 PM EST us Amy Ramos DO LAB BLOOD ORDERABLES Final R esult Performing Organization Address City/[facility]/ZIP Co de Phone Number [facility] [address] [place] [phone] * Hemoglobin A1c (04/28/2024 12:27 PM EST) Hemoglobin A1c 5.3 <6.0 % [facility] Comment:Hemoglobin A1C Refer ence Range Adults: 4.8 - 6.0 % Non diabetic: < 6.0 % Goal: < 7.0 %Additional Action Suggested: > 8.0 %Note: Hemoglobin A1c results are invalid for patients with abnormal amounts of HbF. Blood transfusions may impact the HbA1c concentration in the patient sample. Estimated Average Glucose 105 mg/dL [facility] Comment:eAG = Estimated ave rage glucose which is %A1C expressed asaverage glucose, using the formula of the G1A-FetdekhFgkvzsn Glucose study (ADAG), Diabetes Care, Vol.31,#8,Sep. 2007 Blood Venous blood specimen / Unknown 04/28/2024 12:27 PM EST 04/28/2024 1:12 PM EST Amy Ramos DO LAB BLOOD ORDERABLES Final R esult [facility] [address] [place] [phone] * (ABNORMAL) Hepatic Function Panel (04/28/2024 12:27 PM EST) Bilirubin, Total 0.6 0.0 - 1.0 mg/dL [facility] Bilirubin, Direct 0.2 0.0 - 0.5 mg/dL [facility] Aspartate Amino Transferase 40(H) 5 - 37 U/L [facility] Alanine Aminotransferase 34 0 - 40 U/L [facility] Total Protein 7.8 6.5 - 8.0 g/dL [facility] Albumin Level 4.7 3.5 - 5.0 g/dL [facility] Alkaline Phosphatase 51 39 - 117 U/L [facility] Blood Venous blood specimen / Unknown 04/28/2024 12:27 PM EST 04/28/2024 1:12 PM EST us Amy Ramos DO LAB BLOOD ORDERABLES Final R esult [facility] [address] [place] [phone] * Vitamin D, 25-Hydroxy, Total, Immunoassay (04/28/2024 12:27 PM EST) Vitamin D 25-OH Total 33.0 >30 ng/mL [facility] Comment:Health Based Referen ce Values*< 20 ng/mL Bfgayfvys81-25 ng/mL Insufficient> 30 ng/mL Sufficient*Tyrone SIEGEL. N [...] ORDERABLES Final R esult Performing Organization Address City/[facility]/ZIP Co de Phone Number [facility] [address] [place] [phone] * TSH (04/28/2024 12:27 PM EST) Thyroid Stimulating Hormone 1.64 0.32 - 4.0 uIU/mL [facility] Comment:TSH 3rd Generation ( [employer]) Blood Venous blood specimen / Unknown 04/28/2024 12:27 PM EST 04/28/2024 1:12 PM EST Amy Moyatalitalyle LAB BLOOD ORDERABLES Final R esult Performing Organization Address City/[facility]/ZIP Co de Phone Number [facility] [address] [place] [phone] * Lipid Panel, Standard (04/28/2024 12:27 PM EST) Triglycerides 46 <150 mg/dL [facility] Comment:Desirable Triglyceri de: less than 150 mg/dLBorderline High Triglyceride 150-199 mg/dLHigh Triglyceride: 200-499 mg/dLVery High Triglyceride: greater than or equal to 5OO mg/dL Cholesterol 138 <200 mg/dL [facility] Comment:Desirable Cholestero l: less than 200 mg/dLBorderline High Cholesterol: 200-239 mg/dLHigh Cholesterol: greater than 239 mg/dL LDL Cholesterol Calculated 88 <100 mg/dL [facility] Comment:Desirable LDL: less than 100 mg/dLNear Optimal/Above Optimal LDL: 110- 129 mg/dLBorderline High LDL: 130-159 mg/dLHigh LDL: 160-189 mg/dLVery High LDL: greater than or equal to 190 mg/dL HDL Cholesterol 41 >40 mg/dL [facility] Comment:Desirable HDL: great er than 40 mg/dL Note: This HDL assay may give artificially low results in patients with liver disease. Blood Venous blood specimen / Unknown 04/28/2024 12:27 PM EST 04/28/2024 1:12 PM EST Amy Ramos DO LAB BLOOD ORDERABLES Final R esult Performing Organization Address City/[facility]/ZIP Co de Phone Number [facility] [address] [place] [phone] * T4, Free (04/28/2024 12:27 PM EST) Free T4 (Free Thyroxine) 1.05 0.71 - 1.85 ng/dL [facility] Blood Venous blood specimen / Unknown 04/28/2024 12:27 PM EST 04/28/2024 1:12 PM EST us Amy Ramos DO LAB BLOOD ORDERABLES Final R esult Performing Organization Address City/[facility] Co de Phone Number [facility] [address] [place] [phone] documented in this encounter Visit Diagnoses Diagnosis Routine history and physical examination of adult- Primary Chronic GERD BMI 26.0-26.9,adult Dietary counseling Dietary surveillance and counseling Exercise counseling Encounter for immunization documented in this encounter Additional Health Concerns Assessment Noted Time PHQ-9 Depression Total Score: 0 04/29/19 10:44 AM EST documented as of this encounter Care Teams Pattern Technician Relationship Specialty Start Date End Date Amy Ramos DO [address] [place] [phone] PCP - General Family Medicine 04/28/24 documented as of this encounter
[2024-04-28 15:55] LABS: CT PCR NOT DETECTED (Not Detect.); NG PCR NOT DETECTED (Not Detect.)
[2024-04-29 08:09] LABS: Hepatitis A Antibody IgG Nonreactive (Nonreactive); ~Hepatitis A Antibody IgG 0.17 S/CO (0.00-0.99)
[2024-04-29 08:29] LABS: HBS Num1 66.17 mIU/mL (0-7.99); HBc Num1 0.08 S/CO (0.00-0.79); HBsAGNum1 0.39 S/CO (0.00-0.99); HIV AB/AG Nonreactive (Nonreactive); HIV Num 1 0.06 S/CO (0.00-0.99); Hepatitis B Core Antibody Nonreactive (Nonreactive); Hepatitis B Surface Antigen Negative (Negative); ~HepC Num1 0.12 S/CO (0.00-0.79); ~Hepatitis B Surface Antibody REACTIVE (Nonreactive); ~Hepatitis C Antibody Nonreactive (Nonreactive)
[2024-04-30 08:14] LABS: H Pylori Breath Test Positive (Negative)
[2024-04-30 11:58] LABS: RPR Rapid Plasma Reagin NON-REACTIVE (NON-REACTIVE)
== END 2024-04-28 12:21 | disposition home or self-care (01) ==
LOC: HO.HHCL 12:20
PROVIDERS: Visit Provider Family Medicine
DX: Z00.00 Encounter for general adult medical examination without abnormal findings (principal); K21.9 Gastro-esophageal reflux disease without esophagitis; Z68.26 Body mass index [BMI] 26.0-26.9, adult
CPT/HCPCS: 80048; 80061; 80076; 82306; 83013; 83036; 84439; 84443; 85027; 86592; 86704; 86706; 86708; 86803; 87340; 87389; 87491; 87591

== ENCOUNTER 2024-06-22 07:04 | Emergency (ER) | payer MEDICAID, SELFPAY ==
--- NOTE | ~2024-06-22 | XR_ITS ---
EXAMINATION: XR HAND/WRIST, RIGHT XR HAND/WRIST, LEFT CLINICAL INFORMATION: pain COMPARISON: None TECHNIQUE: PA, lateral, and oblique views of the each hand and wrist. FINDINGS: RIGHT HAND/WRIST: The bones and soft tissues are normal. No fracture. Alignment is anatomic. Joint spaces are maintained. No erosions or soft tissue calcifications. LEFT HAND/WRIST: The bones and soft tissues are normal. No fracture. Alignment is anatomic. Joint spaces are maintained. No erosions or soft tissue calcifications. XR/XR Hand Bilat min 3v IMPRESSION: Normal radiographs of the bilateral hands and wrists. Electronically signed by: Bennie Morales MD 06/22/2024 09:41 AM EDT
[2024-06-22 07:15] VITALS: BP 136/92; PULSE 62; RESP 18; TEMP 36.9; O2SAT 99; BMI 25.1
--- OUTSIDE RECORDS SUMMARY | 2024-06-22 07:48 | XMS_ITS | Clinical Summary ---
Author Organization [facility] ity Address [address] [place] [address] Care Team Providers Care Export Specialist Name Role Phone Unavailable Primary Care Provider [...] - 2023-2 5 season) 2023 Influenza Vaccine (Season Ended) 2024 HIB Vaccines Aged Out No longer eligi [...] age to complete this topic Meningococcal B Vaccine Aged Out No l onger eligible based on patient's age to complete [...]
--- OUTSIDE RECORDS SUMMARY | 2024-06-22 07:48 | XMS_ITS | Clinical Summary ---
Author Organization [facility] Address [address] [place] [address] Care Team Providers Care Supervisor Paper Machine Name Role Phone Daljit Rader Primary Care Provider [phone] Source Comments PLEASE NOTE, if this patient [...] Health Maintenance Due Date Last Done Comments Anxiety Screening 1990 Tobacco Screening 1990 Imm-DTaP/Tdap/Td (1 - Tdap) 2009 Annual Preventive Care Visit 08/16/2020, 05/28/2018, 01/02/2017, Additional history exists Hypertension Screening (#1) 02/28/2023 03/26/2014 [id number] ( season) 2023 Imm-Influenza (#1) 2023 03/26/2014 [...] EDT) HEPATITIS B SURFACE ANTIBODY POSITIVE(A) NEGATIVE [facility] HEPATITIS B SURFACE ANTIGEN NEGATIVE NEGATIVE [facility] Comment: Over the counter supplements containing high doses of biotin may interfere with this assay. ??If interference is suspected, patients shoud be retested after refraining from biotin supplements for 72 hours. HEPATITIS C VIRUS DIAGNOSTIC NEGATIVE NEGATIVE [facility] HEPATITIS B CORE ANTIBODY NEGATIVE NEGATIVE [facility] HEPATITIS A ANTIBODY TOTAL NEGATIVE NEGATIVE [facility] Comment: Over the counter supplements containing high doses of biotin may interfere with this assay. ??If interference is suspected, patients shoud be retested after refraining from biotin supplements for 72 hours. Blood specimen (specimen) Blood / Unknown 08/20/2019 1:10 PM EDT 08/20/2019 3:01 PM EDT [employer] [facility] - 08/20/2019 3:55 PM EDT [employer], a member of [address] [address] [employer] - Elda Landis MD PT ID [id number] ORD# [id number] [facility] - BLOOD DRAW Edited Result - Final Performing Organization Address City/[facility]/ZIP Co de Phone Number [address] [address], [place] [phone] * HIV-1 & HIV-2 ANTIBODIES (08/20/2019 1:10 PM EDT) [facility] HIV 1 AND 2 ANTIBODY SCREEN NEGATIVE NEGATIVE [facility] Comment: This assay is a 4th [...] 1:10 PM EDT 08/20/2019 3:01 PM EDT [facility] - 08/20/2019 4:24 PM EDT [employer], a member of [address] [address] [employer] Manager - Elda Landis MD PT ID [id number] ORD# [id number] [facility] - BLOOD DRAW Edited Result - Final [address] [address], [place] [phone] from Last 3 Months or Most Recently Relevant to Health Maintenance Insurance [place] MEDICAID Care Teams Supervisor Paper Machine Relationship Specialty Start Date End Date Daljit Rader PA [address] [place] [address] PCP - General Internal Medicine 11/01/16
--- OUTSIDE RECORDS SUMMARY | 2024-06-22 07:48 | XMS_ITS | Clinical Summary ---
Author Organization [facility] Address [address] [place] [address] [address] [place] [address] Care Team Providers Care Shear Tender Name Role Phone Amy Ramos DO Primary Care Provider [phone] Allergies No known active allergies Medications omeprazole OTC (PriLOSEC OTC) 20 MG EC tablet Take 1 tablet (20 mg) by mouth before breakfast and before evening meal. Do not crush, chew, or split. 60 tablet 3 5 04/29/19 26 Active omeprazole (PriLOSEC) [address] Hernán ons:Helicobacte r Pylori Infection Take 1 capsule (20 mg) by mouth before breakfast and before evening meal for 14 days. Do not crush or chew. 28 capsule 5 Active Active Problems Problem Noted Date Diagnosed Date BMI 26.0-26.9,adult 04/28/2024 Chronic gastroesophageal reflux disease 04/29/19 25 Encounters Date Type Department Care Team Description 05/08/2024 Population Health Risk Score [facility] (C3) Department [address] [place] [phone] Provider, Population Health Generic 05/04/2024 Orders Only [facility] [address] [place] [address] Amy Ramos DO 05/01/2024 Telephone [facility] [address] [place] [address] Amy Ramos DO Results 04/28/2024 10:45 AM EST Office Visit [facility] [address] [place] [address] Amy Ramos DO Routine history and physical examination of adult (Primary Dx); Chronic GERD; BMI 26.0-26.9,adult; Dietary counseling; Exercise counseling; Encounter for immunization 04/28/2024 Orders Only [facility] [address] [place] [address] Amy Ramos, 04/28/2024 Telephone [facility] [address] [place] [address] Amy Ramos, critical result 04/28/2024 Travel 04/16/2024 Patient Outreach [facility] [address] [place] [address] Amy Ramos, Pre-visit Planning ((Unable to reach for PVP screening, LVM)) from Last 3 Months Immunizations Name Administration [...] Description 07/03/2024 10:15 AM EDT Office Visit [facility] [address] [place] [address] Amy Ramos DO [address] [place] [address] Health Maintenance Due Date Last Done Comments Family Planning (PISQ) 2005 Hepatitis B Vaccines (1 of 3 - [...] older (1 - 1-dose 75+ series) 2065 HIV Screening Completed 04/28/2024 Hepatitis C Screening Completed 04/28/2024 HIB Vaccines Aged Out No longer eligi [...] Procedure Name Priority Date/Time Associated Diagnosis Comments HELICOBACTER PYLORI, UREA BREATH TEST Routine 04/28/2024 12:45 PM EST HEPATITIS B CORE AB TOTAL Routine 04/28/2024 12:27 PM EST Routine history and physical examination of adult Chronic GERD BMI 26.0-26.9,adult HEPATITIS A ANTIBODY, TOTAL Routine 04/28/2024 12:27 PM EST Routine history and physical examination of adult Chronic GERD BMI 26.0-26.9,adult HEPATITIS B SURFACE ANTIBODY, QUALITATIVE Routine 04/28/2024 12:27 PM EST Routine history and physical examination of adult Chronic GERD BMI 26.0-26.9,adult RPR (MONITOR) W/REFL TITER Routine 04/28/2024 12:27 PM EST Routine history and physical examination of adult Chronic GERD BMI 26.0-26.9,adult HEPATITIS C AB W/REFL TO HCV RNA, QN, PCR Routine 04/28/2024 12:27 PM EST Routine history and physical examination of adult Chronic GERD BMI 26.0-26.9,adult HIV 1/2 ANTIGEN/ANTIBODY, FOURTH GENERATION W/RFL Routine 04/28/2024 12:27 PM EST Routine history and physical examination of adult Chronic GERD BMI 26.0-26.9,adult HEPATITIS B SURFACE ANTIGEN, EIA Routine 04/28/2024 12:27 PM EST Routine history [...] examination of adult Chronic GERD BMI 26.0-26.9,adult CHLAMYDIA/N. GONORRHOEAE RNA, TMA, UROGENITAL Routine 04/28/2024 12:27 PM EST Routine history and physical examination of adult Chronic GERD BMI 26.0-26.9,adult from Last 3 Months Results * (ABNORMAL) Helicobacter pylori, Urea Breath Test (04/28/2024 12:45 PM EST) H. pylori Breath Test Positive (A) Negative [facility] Comment:Antimicrobials, prot on pump inhibitors and bismuthpreparations are known to suppress H. pylori. Ingestingthese medications within two weeks prior to performing thebreath test may produce negative test results. A positiveresult is still clinically valid. 04/28/2024 12:4 5 PM EST 04/28/2024 6:27 PM EST us Amy Ramos DO LAB BLOOD ORDERABLES Final R esult [facility] [address] [place] [phone] * Vitamin D, 25-Hydroxy, Total, Immunoassay (04/28/2024 12:27 PM EST) Vitamin D 25-OH Total 33.0 >30 ng/mL [facility] Comment:Health Based Referen ce Values*< 20 ng/mL [id number] ng/mL Insufficient> 30 ng/mL Sufficient*Tyrone SIEGEL. N [...] ORDERABLES Final R esult Performing Organization Address [facility] Co de Phone Number [facility] [address] [place] [phone] * Hepatitis C Antibody with Reflex to HCV, RNA, Quantitative, Real-Time PCR (04/28/2024 12:27 PM EST) Hepatitis C Antibody Nonreactive Nonreactive [facility] Comment:Antibodies to HCV no t detected; does not exclude early acuteHCV infection. Blood Venous blood specimen / Unknown 04/28/2024 12:27 PM EST 04/28/2024 1:12 PM EST Amy Ramos DO LAB BLOOD ORDERABLES Final R esult Performing Organization Address [facility] Co de Phone Number [facility] [address] [place] [phone] * Hepatitis A Antibody, Total (04/28/2024 12:27 PM EST) Hepatitis A Antibody IgG Nonreactive Nonreactive [facility] Blood Venous blood specimen / Unknown 04/28/2024 12:27 PM EST 04/28/2024 1:12 PM EST Amy Ramos DO LAB BLOOD ORDERABLES Final R esult Performing Organization Address City/[facility] Co de Phone Number [facility] [address] [place] [phone] * Chlamydia/N. Gonorrhoeae RNA, TMA, Urogenitial (04/28/2024 12:27 PM EST) CT PCR NOT DETECTED Not Detect. [facility] Comment:A not detected test result does not exclude the possibilityof infection because test results can be affected byimproper specimen collection, concurrent antibiotic therapy,or the number of organisms in the specimen which may bebelow the sensitivity of the test. As with many diagnostictests, results from the Xpert CT/NG assay should beinterpreted in conjunction with other laboratory andclinical data available to the clinician.Xpert CT/NG performance has not been evaluated in patientsless than 14 years of age. The assay should not be used forthe evaluationof suspected sexual abuse or for other medico-legalindications. Additional testing is recommended in anycircumstance when false positive or false negative resultscould lead to adverse medical, social or psychologicalconsequences. NG PCR NOT DETECTED Not Detect. [facility] Comment:A not detected test result does not exclude the possibilityof infection because test results can be affected byimproper specimen collection, concurrent antibiotic therapy,or the number of organisms in the specimen which may bebelow the sensitivity of the test. As with many diagnostictests, results from the Xpert CT/NG assay should beinterpreted in conjunction with other laboratory andclinical data available to the clinician.Xpert CT/NG performance has not been evaluated in patientsless than 14 years of age. The assay should not be used forthe evaluationof suspected sexual abuse or for other medico-legalindications. Additional testing is recommended in anycircumstance when false positive or false negative resultscould lead to adverse medical, social or psychologicalconsequences. Urine Urethral structure / Unknown 04/28/2024 12:27 PM EST 04/28/2024 1:10 PM EST Narrative [facility] - 04/28/2024 3:56 PM EST Urine us Amy Ramos DO LAB MICROBIOLOGY - GENERAL O RDERABLES Final Result [facility] [address] [place] [phone] * Hepatitis B surface antigen, EIA (04/28/2024 12:27 PM EST) Hepatitis B Surface Ag Negative Negative [facility] Blood Venous blood specimen / Unknown 04/28/2024 12:27 PM EST 04/28/2024 1:12 PM EST Amy Ramos DO LAB BLOOD ORDERABLES Final R esult Performing Organization Address City/[facility] Co de Phone Number [facility] [address] [place] [phone] * Hepatitis B Core Antibody, Total (04/28/2024 12:27 PM EST) Hepatitis B Core Antibody Nonreactive Nonreactive [facility] Blood Venous blood specimen / Unknown 04/28/2024 12:27 PM EST 04/28/2024 1:12 PM EST Amy Ramos DO LAB BLOOD ORDERABLES Final R esult Performing Organization Address City/[facility] Co de Phone Number [facility] [address] [place] [phone] * RPR (Monitor) with Reflex to??Titer (04/28/2024 12:27 PM EST) RPR (Monitor) w/Refl Titer NON-REACTI VE NON-REACT VIJI [facility] Comment:THIS TEST WAS PERFOR MED AT:[employer] [place] [phone] GRAHAM MD Rapid Plasma Reagin Ab Titer TNP [facility] Blood Venous blood specimen / Unknown 04/28/2024 12:27 PM EST 04/28/2024 1:14 PM EST Amy Coulterak DO LAB BLOOD ORDERABLES Final R esult Performing Organization Address City/[facility]/ZIP Co de Phone Number [facility] [address] [place] [phone] * HIV-1/2 Antigen and Antibodies, Fourth Generation, with Reflexes (04/28/2024 12:27 PM EST) HIV AB/AG Nonreactive Nonreactive [facility] Comment:HIV-1 p24 Ag and/or HIV-1/HIV-2 Ab not detected.A test result that is nonreactive does not exclude thepossibility of exposure to or infection with HIV-1 and/orHIV-2. Nonreactive results in this assay for individualswith prior exposure to HIV-1 and/or HIV-2 may be due toantigen and antibody levels that are below the limit ofdetection of this assay.The edPULSE HIV Ag/Ab Combo assay result andsupplemental assay results should be interpreted inconjunction with the patient's clinical presentation,history and other laboratory results. If the results areinconsistent with clinical evidence, additional testing issuggested to confirm the result. Blood Venous blood specimen / Unknown 04/28/2024 12:27 PM EST 04/28/2024 1:12 PM EST Amy Rachel Kimengi LAB BLOOD ORDERABLES Final R esult Performing Organization Address City/[facility]/ZIP Co de Phone Number [facility] [address] [place] [phone] * Hepatitis B Surface Antibody, Qualitative (04/28/2024 12:27 PM EST) ~Hepatitis B Surface Antibody REACTIVE Nonreactive [facility] Comment:REACTIVE: > 11.99 m IU/mL Blood Venous blood specimen / Unknown 04/28/2024 12:27 PM EST 04/28/2024 1:12 PM EST Amy Moyatalitalyle DO LAB BLOOD ORDERABLES Final R esult [facility] [address] [place] [phone] * (ABNORMAL) CBC (04/28/2024 12:27 PM EST) White Blood Count 10.0 4.8 - 10.8 X10*3/uL [facility] Red Blood Count 5.03 4.60 - 5.80 X10*6/uL [facility] Hemoglobin 14.9 14.0 - 18.0 g/dl [facility] Hematocrit 43.4 42.0 - 52.0 % [facility] Mean Corpuscular Volume 86.3 80.0 - 98.0 fL [facility] Mean Corpuscular Hemoglobin 29.6 27.0 - 33.0 pg [facility] Mean Corpuscular HGB Conc 34.3 31.0 - 36.0 g/dl [facility] Red Cell Distribution Width 12.4 11.0 - 16.0 % [facility] Platelet Count 272 160 - 400 X10*3/uL [facility] Mean Platelet Volume 9.1(L) 9.4 - 12.4 fL [facility] NRBC Pct Auto 0.0 0.0 - 0.2 /100WBC [facility] NRBC Abs Auto 0.000 0.0 - 0.012 X10*3/uL [facility] Blood Venous blood specimen / Unknown 04/28/2024 12:27 PM EST 04/28/2024 1:12 PM EST us Amy Ramos DO LAB BLOOD ORDERABLES Final R esult Performing Organization Address City/[facility]/ZIP Co de Phone Number [facility] [address] [place] [phone] * TSH (04/28/2024 12:27 PM EST) Thyroid Stimulating Hormone 1.64 0.32 - 4.0 uIU/mL [facility] Comment:TSH 3rd Generation ( [facility]) Blood Venous blood specimen / Unknown 04/28/2024 12:27 PM EST 04/28/2024 1:12 PM EST Amy Ramos DO LAB BLOOD ORDERABLES Final R esult Performing Organization Address City/[facility]/ZIP Co de Phone Number [facility] [address] [place] [phone] * T4, Free (04/28/2024 12:27 PM EST) Free T4 (Free Thyroxine) 1.05 0.71 - 1.85 ng/dL [facility] Blood Venous blood specimen / Unknown 04/28/2024 12:27 PM EST 04/28/2024 1:12 PM EST Amy Ramos DO LAB BLOOD ORDERABLES Final R esult Performing Organization Address City/[facility] Co de Phone Number [facility] [address] [place] [phone] * Hemoglobin A1c (04/28/2024 12:27 PM EST) Hemoglobin A1c 5.3 <6.0 % [facility] Comment:Hemoglobin A1C Refer ence Range Adults: 4.8 - 6.0 % Non diabetic: < 6.0 % Goal: < 7.0 %Additional Action Suggested: > 8.0 %Note: Hemoglobin A1c results are invalid for patients with abnormal amounts of HbF. Blood transfusions may impact the HbA1c concentration in the patient sample. Estimated Average Glucose 105 mg/dL [facility] Comment:eAG = Estimated ave rage glucose which is %A1C expressed asaverage glucose, using the formula of the [id number] Glucose study (ADAG), Diabetes Care, Vol.31,#8,Sep. 2007 Blood Venous blood specimen / Unknown 04/28/2024 12:27 PM EST 04/28/2024 1:12 PM EST Result [facility] Amy Moyatalitalyle ABBOTT LAB BLOOD ORDERABLES Final R esult Performing Organization Address City/[facility]/ZIP Co de Phone Number [facility] [address] [place] [phone] * (ABNORMAL) Hepatic Function Panel (04/28/2024 12:27 PM EST) Bilirubin, Total 0.6 0.0 - 1.0 mg/dL [facility] Bilirubin, Direct 0.2 0.0 - 0.5 mg/dL [facility] Aspartate Amino Transferase 40(H) 5 - 37 U/L [facility] Alanine Aminotransferase 34 0 - 40 U/L [facility] Total Protein 7.8 6.5 - 8.0 g/dL [facility] Albumin Level 4.7 3.5 - 5.0 g/dL [facility] Alkaline Phosphatase 51 39 - 117 U/L [facility] Blood Venous blood specimen / Unknown 04/28/2024 12:27 PM EST 04/28/2024 1:12 PM EST Amy Rachel LAB BLOOD ORDERABLES Final R esult Performing Organization Address City/[facility]/ZIP Co de Phone Number [facility] [address] [place] [phone] * Lipid Panel, Standard (04/28/2024 12:27 PM EST) Triglycerides 46 <150 mg/dL [facility] Comment:Desirable Triglyceri de: less than 150 mg/dLBorderline High Triglyceride 150-199 mg/dLHigh Triglyceride: 200-499 mg/dLVery High Triglyceride: greater than or equal to 5OO mg/dL Cholesterol 138 <200 mg/dL [facility] Comment:Desirable Cholestero l: less than 200 mg/dLBorderline High Cholesterol: 200-239 mg/dLHigh Cholesterol: greater than 239 mg/dL LDL Cholesterol Calculated 88 <100 mg/dL [facility] Comment:Desirable LDL: less than 100 mg/dLNear Optimal/Above Optimal LDL: 110- 129 mg/dLBorderline High LDL: 130-159 mg/dLHigh LDL: 160-189 mg/dLVery High LDL: greater than or equal to 190 mg/dL HDL Cholesterol 41 >40 mg/dL [facility] Comment:Desirable HDL: great er than 40 mg/dL Note: This HDL assay may give artificially low results in patients with liver disease. Blood Venous blood specimen / Unknown 04/28/2024 12:27 PM EST 04/28/2024 1:12 PM EST us Amy Ramos DO LAB BLOOD ORDERABLES Final R esult [facility] [address] [place] [phone] * (ABNORMAL) Basic Metabolic Panel (04/28/2024 12:27 PM EST) Sodium 142 135 - 145 mmol/L [facility] Potassium 3.9 3.3 - 5.1 mmol/L [facility] Chloride 107 96 - 108 mmol/L [facility] Carbon Dioxide 28 22 - 29 mmol/L [facility] Anion Gap 11(L) 12 - 20 [facility] Urea Nitrogen (BUN) 17(H) 9 - 16 mg/dL [facility] Creatinine, Serum 0.84 0.5 - 1.4 mg/dL [facility] Estimated Glomerular Filt Rate >60 [facility] Comment:Chronic Kidney Disea se: Estimated GFR < 60 mL/min/1.47j5Pwmxcj Kidney Disease: Estimated GFR < 15 mL/min/1.73m2 Glucose 51(LL) 60 - 115 mg/dL [facility] Comment:Critical value for G LUCOSE Results called to and read ela Moore Person calling: DRAKE Date: 04/28/24Time:1412 Calcium 9.7 8.4 - 10.2 mg/dL [facility] Blood Venous blood specimen / Unknown 04/28/2024 12:27 PM EST 04/28/2024 1:12 PM EST Amy Ramos DO LAB BLOOD ORDERABLES Final R esult [facility] [address] [place] [phone] from Last 3 Months [facility] [address] [place] [phone] [place] [phone] [place] [phone] Care Teams Shear Tender Relationship Specialty Start Date End Date Amy Ramos DO [address] [place] [phone] PCP - General Family Medicine 04/28/24
--- NOTE | 2024-06-22 09:01 | ED.GENADULT ---
HPI - General Adult General Chief complaint: General Medical Stated complaint: hand numbness and cramping Time Seen by Provider: 06/22/24 09:01 Source: patient and RN notes reviewed Mode of arrival: ambulatory Limitations: no limitations History of Present Illness ED Provider: Ryanne Rush PA-C HPI narrative: This is a 33-year-old male, with no known medical problems, who presents emergency department with concerns for bilateral hand and wrist numbness, pain, and swelling. He denies any recent trauma or injury. 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 He reports that when he awoke on Saturday morning he noticed he had decreased range of motion to both of his hands and wrist. Denies history of similar symptoms. He denies any fevers, chills, chest pain, shortness of breath, abdominal pain, nausea, vomiting or diarrhea. He states that he took Tylenol several days ago which provided him without any relief. No other complaints or concerns at this time. MD complaint: Hand pain, wrist pain Onset (ago): day(s) Radiation: non-radiation Quality: aching Pain Consistency: constant Relieving factors: none Exacerbating factors: none Associated symptoms: denies other symptoms Related Data Previous Rx's ?Medication ?Instructions ?Recorded ondansetron 4 mg disintegrating 4 mg PO Q6-8H PRN nausea and 08/07/23 tablet vomiting #10 tabs acetaminophen 500 mg tablet 1,000 mg (2 x 500 mg) PO Q8H PRN 06/22/24 (Tylenol Extra Strength) pain #30 tabs prednisone 20 mg tablet 40 mg (2 x 20 mg) PO DAILY 5 days 06/22/24 #10 tabs Allergies Allergy/AdvReac Type Severity Reaction Status Date / Time No Known Allergies Allergy Verified 06/22/24 07:20 Review of Systems Review of Systems: Constitutional: No Weight loss, No Fever, No Chills, No Night Sweats, No Fatigue, No Malaise ENT/Mouth: No Hearing loss, No Ear Pain, No Nasal Congestion, No Sinus Pain, No Hoarseness, No sore throat, No Rhinorrhea, No Swallowing Difficulty Eyes: No Eye Pain, No Swelling, No Redness, No Foreign Body, No Discharge, No Vision Changes Cardiovascular: No Chest Pain, No SOB, No Dyspnea on Exertion, No Orthopnea, No Edema, No Palpitations Respiratory: No Cough, No Sputum, No Wheezing, No Smoke Exposure, No Dyspnea Gastrointestinal: No Nausea, No Vomiting, No Diarrhea, No Constipation, No Abdominal pain, No Hematochezia, No Melena Genitourinary: No irregular bleeding, No Dysuria, No Urinary Frequency, No Hematuria, No Urinary Incontinence/retention, No Urgency, No Flank Pain, No Urinary Flow Changes, No Hesitancy Musculoskeletal: No joint pain, No Myalgias, No Joint Swelling Skin: No Skin Lesions, No rash Neuro: No Weakness, No Numbness, No Paresthesias, No Loss of Consciousness, No Dizziness, No Headache Psych: No Anxiety/Panic, No Depression, No SI/HI/AH/VH, No Social Issues, Heme/Lymph: No Bruising, No Bleeding,No Lymphadenopathy Endocrine: No Polyuria, No Polydipsia, No Temperature Intolerance Yes all other systems are reviewed and are negative Constitutional: Constitutional: Reports as per [facility] Social History Social History (System 04/30/24 @ 11:44 by Heidy Ochoa) Advance Directives: No Advance Directives Information Provided: Yes Do you have a plan to hurt others: No Plan Physical Exam ED Vital Signs: Vital Signs - 24 hr 06/22/24 07:15 Temperature 98.5 F Pulse Rate 62 Respiratory Rate 18 Blood Pressure 136/92 H Pulse Oximetry 99 Oxygen Delivery Method Room Air BMI result Body Mass Index 25.1 Extrem Other: Bilateral wrist and hands with no obvious bony deformity or swelling, full ROM of the digits and wrist. No overlying erythema or edema. No open wounds or sores. Course Reevaluation(s) Reevaluation #1: Labs returned, patient with no leukocytosis, he was a normocytic anemia with an H&H of 13.4/38.7. ESR within normal limits at 13, and slightly elevated liver transaminases at 49 and 56. X-ray is unremarkable. Discussed overall workup with patient. Will discharged on prednisone, Tylenol. He has a follow-up with his primary care physician on July 03. Given strict return precautions. He understands and agrees with plan, stable for discharge. Time: 11:23 Medical Decision Making Medical Decision Making MDM Narrative: This is a 33-year-old male, with no known medical problems, who presents emergency department with concerns for bilateral hand and wrist pain. On arrival, patient was mildly hypertensive at 136/92, all other vital signs within normal limits. He is speaking in full sentences under no acute distress. No overlying skin changes to bilateral hands and wrist. Differential diagnoses include carpal tunnel, tendonitis, septic arthritis-unlikely. He denies history of IVDA. Will obtain labs, and x-rays. Patient declines wanting any pain medication at this time. We will continue to monitor. Differential Diagnosis Differential Diagnoses: The differential diagnosis associated with the presentation includes See above Lab Data MDM Lab Attestation statement: I reviewed the patient's lab results. See course comment 06/22/24 09:42 06/22/24 09:42 Labs: Lab Results 06/22/24 Range/Units 09:42 WBC 7.6 (4.8-10.8) X10*3/uL RBC 4.48 L (4.60-5.80) X10*6/uL Hgb 13.4 L (14.0-18.0) g/dl Hct 38.7 L (42.0-52.0) % MCV 86.4 (80.0-98.0) fL MCH 29.9 (27.0-33.0) pg MCHC 34.6 (31.0-36.0) g/dl RDW 12.5 (11.0-16.0) % Plt Count 270 (160-400) X10*3/uL MPV 8.6 L (9.4-12.4) fL Immature Gran % (Auto) 0.3 (0.0-0.4) % Neut % (Auto) 67.9 (45-73) % Lymph % (Auto) 20.4 (20-40) % [place] % (Auto) 9.1 (2-11) % Eos % (Auto) 1.6 (0-4) % Baso % (Auto) 0.7 (0-2) % Lymph # (Auto) 1.5 (1.2-4.9) X10*3/uL [place] # (Auto) 0.7 (0.1-1.2) X10*3/uL Eos # (Auto) 0.1 (0.0-0.4) X10*3/uL Baso # (Auto) 0.1 (0.0-0.2) X10*3/uL Abs Immat Gran (auto) 0.02 (0.00-0.03) X10*3/uL Absolute Neuts (auto) 5.1 (2.0-8.3) x10*3/uL Absolute Nucleated RBC 0.000 (0.0-0.012) X10*3/uL Nucleated RBC % (auto) 0.0 (0.0-0.2) /100WBC ESR 13 (0-15) MM/HR Sodium 141 (135-145) mmol/L Potassium 4.2 (3.3-5.1) mmol/L Chloride 110 H (96-108) mmol/L Carbon Dioxide 23 (22-29) mmol/L Anion Gap 12 (12-20) BUN 13 (9-16) mg/dL Creatinine 0.74 (0.5-1.4) mg/dL Estim Creat Clear Calc 123.5 Estimated GFR > 60 Random Glucose 89 (60-115) mg/dL Uric Acid 4.5 (3.4-7.0) mg/dL Calcium 9.0 D (8.4-10.2) mg/dL Magnesium 2.1 (1.6-2.6) mg/dL Total Bilirubin 0.4 (0.0-1.0) mg/dL Direct Bilirubin 0.1 (0.0-0.5) mg/dL AST 49 H (5-37) U/L ALT 56 H (0-40) U/L Alkaline Phosphatase 57 (39-117) U/L C-Reactive Protein 0.68 H (< or = 0.50) mg/dL Total Protein 6.9 (6.5-8.0) g/dL Albumin 4.3 (3.5-5.0) g/dL Radiology Impression Discussion of test interpretation with radiology: I have reviewed the radiologist's reading. Radiologist Impression: FINDINGS: RIGHT HAND/WRIST: The bones and soft tissues are normal. No fracture. Alignment is anatomic. Joint spaces are maintained. No erosions or soft tissue calcifications. LEFT HAND/WRIST: The bones and soft tissues are normal. No fracture. Alignment is anatomic. Joint spaces are maintained. No erosions or soft tissue calcifications. XR/XR Hand Bilat min 3v IMPRESSION: Normal radiographs of the bilateral hands and wrists. Electronically signed by: Bennie Morales MD 06/22/2024 09:41 AM EDT RP Dictated By: Bennie Morales MD Discharge Plan Discharge Clinical Impression: Acute pain of both wrists Patient Disposition: Home, Self-Care Instructions: Arthralgia (ED) Additional Instructions: You were seen in the emergency department due to bilateral hand and wrist pain. Your x-rays were normal. Your blood work was reassuring. You do have a slight anemia, as well as some elevated liver enzymes. Please follow-up with your primary care physician for monitoring these things. You also have a slight elevation in inflammatory markers. It was unclear what is causing you to have your symptoms however this could be due to inflammation more repetitious movements. Please rest, ice, and use wrist splints. Use these wrist splints at bedtime. Take Tylenol as needed for pain. Prednisone is a steroid, which can help decrease inflammation. This is a short-term medication to provide you with relief. If any new or worsening symptoms occur including but not limited to inability to move your wrist or digits, chest pain, shortness of breath, please seek emergent care. Prescriptions: New prednisone 20 mg tablet 40 mg PO DAILY 5 Days Qty: 10 0RF acetaminophen [Tylenol Extra Strength] 500 mg tablet 1,000 mg PO Q8H PRN (Reason: pain) Qty: 30 0RF No Action ondansetron 4 mg tablet,disintegrating 4 mg PO Q6-8H PRN (Reason: nausea and vomiting) Qty: 10 0RF Print Language: Australian
--- NOTE | 2024-06-22 09:30 | PC.NURSE ---
Patient away for imaging.
[2024-06-22 09:46] LABS: MANUAL DIFF FLAG NO
[2024-06-22 09:52] LABS: Basophils Absolute Auto 0.1 X10*3/uL (0.0-0.2); Basophils Percent Auto 0.7 % (0-2); Eosinophils Absolute Auto 0.1 X10*3/uL (0.0-0.4); Eosinophils Percent Auto 1.6 % (0-4); Hematocrit 38.7 % (42.0-52.0); Hemoglobin 13.4 g/dl (14.0-18.0); Imm Gran Abs Auto 0.02 X10*3/uL (0.00-0.03); Imm Gran Pct Auto 0.3 % (0.0-0.4); Lymphocytes Absolute Auto 1.5 X10*3/uL (1.2-4.9); Lymphocytes Percent Auto 20.4 % (20-40); Mean Corpuscular HGB Conc 34.6 g/dl (31.0-36.0); Mean Corpuscular Hemoglobin 29.9 pg (27.0-33.0); Mean Corpuscular Volume 86.4 fL (80.0-98.0); Mean Platelet Volume 8.6 fL (9.4-12.4); Monocytes Absolute Auto 0.7 X10*3/uL (0.1-1.2); Monocytes Percent Auto 9.1 % (2-11); Neutrophils Absolute Auto 5.1 x10*3/uL (2.0-8.3); Neutrophils Percent Auto 67.9 % (45-73); Platelet Count 270 X10*3/uL (160-400); Red Blood Count 4.48 X10*6/uL (4.60-5.80); Red Cell Distribution Width 12.5 % (11.0-16.0); White Blood Count 7.6 X10*3/uL (4.8-10.8)
[2024-06-22 10:12] LABS: Alanine Aminotransferase 56 U/L (0-40); Albumin Level 4.3 g/dL (3.5-5.0); Anion Gap 12 (12-20); Aspartate Amino Transferase 49 U/L (5-37); Bilirubin Direct 0.1 mg/dL (0.0-0.5); Bilirubin Total 0.4 mg/dL (0.0-1.0); Blood Urea Nitrogen 13 mg/dL (9-16); C Reactive Protein 0.68 mg/dL (< or = 0.50); Carbon Dioxide 23 mmol/L (22-29); Chloride 110 mmol/L (96-108); Creatinine Clr Calc Pharmacy 123.5; Estimated Glomerular Filt Rate > 60; Glucose Random 89 mg/dL (60-115); Magnesium 2.1 mg/dL (1.6-2.6); Potassium 4.2 mmol/L (3.3-5.1); Sodium 141 mmol/L (135-145); Total Protein 6.9 g/dL (6.5-8.0)
[2024-06-22 10:29] LABS: Erythrocyte Sedimentation Rate 13 MM/HR (0-15)
[2024-06-22 11:03] LABS: Alkaline Phosphatase 57 U/L (39-117)
[2024-06-22 11:14] LABS: Uric Acid 4.5 mg/dL (3.4-7.0)
[2024-06-22 11:56] VITALS: BP 120/74; PULSE 63; RESP 16; TEMP 36.6; O2SAT 99
== END 2024-06-22 11:57 | disposition home or self-care (01) ==
PROVIDERS: Physician Assistant Medical; Emergency Provider Emergency Medicine Emergency Medical Services; PCP Family Medicine
DX: M25.532 Pain in left wrist (principal); M25.531 Pain in right wrist; R20.0 Anesthesia of skin; R25.2 Cramp and spasm; Z79.899 Other long term (current) drug therapy
CPT/HCPCS: 36415; 73130; 80048; 80076; 83735; 84550; 85025; 85652; 86140; 99282; 99283

== ENCOUNTER → 2024-06-22 09:14 | Outpatient (BNV) | payer MEDICAID, SELFPAY | PROVIDERS: Emergency Provider Emergency Medicine Emergency Medical Services; PCP Family Medicine; Visit Provider Radiology Diagnostic Radiology | DX: M79.641 Pain in right hand (principal); M79.642 Pain in left hand | CPT/HCPCS: 73130 ==

== ENCOUNTER 2024-10-16 18:12 | Outpatient (REF) | payer MEDICAID, SELFPAY ==
--- OUTSIDE RECORDS SUMMARY | 2024-10-16 18:14 | XMS_ITS | Clinical Summary ---
Author Organization [facility] ity Address [address] [place] [address] Care Team Providers Care District Manager Postal Service Name Role Phone Unavailable Primary Care Provider [...] Vaccine ( - 2023-2 5 season) 2023 Depression Screening 02/26/2024 Influenza Vaccine (#1) 2024 HIB Vaccines Aged Out No longer [...] 5 Years) and At-Risk Patients (6 to 49 Years) Aged Out No longer eligible b ased on patient's age to complete this topic RSV Immunization Patients Un david 20 months Aged Out No longer eligible b ased on patient's age to complete this topic Varicella Vaccines Aged Out No longer eligible based on patient's age to complete this topic
--- OUTSIDE RECORDS SUMMARY | 2024-10-16 18:14 | XMS_ITS | Clinical Summary ---
Author Organization [facility] Address [address] [place] [address] Care Team Providers Care Python Java Developer Name Role Phone Daljit Rader Primary Care Provider [phone] Source Comments PLEASE NOTE, if this patient [...] 66 02/29/2020 1:22 PM EST Temperature 36.8 C (98.3 F) 02/29/2020 1:22 PM EST Respiratory Rate 16 02/29/2020 1:22 PM EST [...] 1990 Imm-DTaP/Tdap/Td (1 - Tdap) 2009 Annual Wellness (Adult): Ind icated (All Coverage) 08/16/2020 08/17/2019, 05/28/2018, 01/02/2017, Additional history exists Hypertension Screening (#1) 02/28/2023 03/26/2014 [id number]-[id number] ( season) 2023 Alcohol and Drug Screen 02/26/2024 08/17/19 20, 05/28/2018, 01/02/2017, Additional history exists Depression Annual Screen 02/26/2024 020, 05/28/2018, 01/02/2017, Additional history exists Imm-Influenza (#1) 2024 03/26/2014 (Declined) HIV Screening Completed 08/20/2019, 12/27, 06/11/2014, Additional [...] EDT) HEPATITIS B SURFACE ANTIBODY POSITIVE(A) NEGATIVE [facility] HEPATITIS B SURFACE ANTIGEN NEGATIVE NEGATIVE [facility] Comment: Over the counter supplements containing high doses of biotin may interfere with this assay. If interference is suspected, patients shoud be retested after refraining from biotin supplements for 72 hours. HEPATITIS C VIRUS DIAGNOSTIC NEGATIVE NEGATIVE [facility] HEPATITIS B CORE ANTIBODY NEGATIVE NEGATIVE [facility] HEPATITIS A ANTIBODY TOTAL NEGATIVE NEGATIVE [facility] Comment: Over the counter supplements containing high doses of biotin may interfere with this assay. If interference is suspected, patients shoud be retested after refraining from biotin supplements for 72 hours. Blood specimen (specimen) Blood / Unknown 08/20/2019 1:10 PM EDT 08/20/2019 3:01 PM EDT [employer] [facility] - 08/20/2019 3:55 PM EDT [employer], a member of [address] [address] Recreation Program Specialist - Elda Landis MD [place] ID [id number] ORD# [id number] [facility] - BLOOD DRAW Edited Result - Final Performing Organization Address City/[facility]/ZIP Co de Phone Number [address] [address], * HIV-1 & HIV-2 ANTIBODIES (08/20/2019 1:10 PM EDT) [facility] HIV 1 AND 2 ANTIBODY SCREEN NEGATIVE NEGATIVE [facility] Comment: This assay is a 4th generation assay allowing for earlier detection of HIV infection by detecting the presence of the HIV-1 p24 antigen as well as the traditional antibodies to HIV type 1 (including group O) and type 2. Use of a 4th generation assay is the current CDC recommendation for HIV screening. Blood specimen (specimen) Blood / Unknown 08/20/2019 1:10 PM EDT 08/20/2019 3:01 PM EDT [facility] - 08/20/2019 4:24 PM EDT [employer], a member of [address] [address] Recreation Program Specialist - Elda Landis MD PT ID [id number] ORD# [id number] [facility] - BLOOD DRAW Edited Result - Final [address] [address], [place] [phone] from Last 3 Months or Most Recently Relevant to Health Maintenance Insurance [place] MEDICAID Care Teams Python Java Developer Relationship Specialty Start Date End Date Daljit Rader PA [address] [place] [address] PCP - General Internal Medicine 11/01/16
== END 2024-10-16 18:13 | disposition home or self-care (01) ==
LOC: HO.HHCLNP 18:12
PROVIDERS: Visit Provider Family Medicine
DX: K21.9 Gastro-esophageal reflux disease without esophagitis (principal)
CPT/HCPCS: 83013

== ENCOUNTER 2025-02-01 11:24 | Outpatient (REF) | payer OTHER, SELFPAY ==
[2025-02-01 13:09] LABS: Hematocrit 43.7 % (42.0-52.0); Hemoglobin 15.2 g/dl (14.0-18.0); Mean Corpuscular HGB Conc 34.8 g/dl (31.0-36.0); Mean Corpuscular Hemoglobin 29.6 pg (27.0-33.0); Mean Corpuscular Volume 85.2 fL (80.0-98.0); NRBC Abs Auto 0.000 X10*3/uL (0.0-0.012); NRBC Pct Auto 0.0 /100WBC (0.0-0.2); Platelet Count 241 X10*3/uL (160-400); Red Blood Count 5.13 X10*6/uL (4.60-5.80); White Blood Count 7.7 X10*3/uL (4.8-10.8)
[2025-02-01 13:18] LABS: Appearance Urine Clear; Glucose Urine UA Negative (Negative); PH 7.0 (5.0-9.0); Specific Gravity - Urine 1.020 (1.005-1.025)
[2025-02-01 13:53] LABS: Alanine Aminotransferase 57 U/L (0-40); Albumin Level 5.0 g/dL (3.5-5.0); Alkaline Phosphatase 42 U/L (39-117); Anion Gap 10 (12-20); Aspartate Amino Transferase 52 U/L (5-37); Blood Urea Nitrogen 14 mg/dL (9-16); Calcium 9.5 mg/dL (8.4-10.2); Carbon Dioxide 25 mmol/L (22-29); Chloride 108 mmol/L (96-108); Cholesterol 192 mg/dL (<200); Estimated Glomerular Filt Rate > 60; HDL Cholesterol 35 mg/dL (>40); Iron 110 mcg/dL (45-160); Percent Iron Saturation 34 % (15-50); Potassium 3.8 mmol/L (3.3-5.1); Sodium 139 mmol/L (135-145); Total Iron Binding Capacity 328 mcg/dL (228-428); Total Protein 7.4 g/dL (6.5-8.0); Triglycerides 168 mg/dL (<150); Unsaturated Iron Binding 218 ug/dL
[2025-02-01 14:10] LABS: Ferritin 200 ng/mL (20-250)
[2025-02-01 14:16] LABS: Folate 12.2 ng/mL (> or = 4.0); Vitamin B12 519 pg/mL (200-900)
[2025-02-02 04:14] LABS: HBS Num1 59.32 mIU/mL (0-7.99); HBc Num1 0.08 S/CO (0.00-0.79); HBsAGNum1 0.44 S/CO (0.00-0.99); HIV Num 1 0.06 S/CO (0.00-0.99); Hepatitis B Surface Antigen Negative (Negative); ~HepC Num1 0.12 S/CO (0.00-0.79); ~Hepatitis B Surface Antibody REACTIVE (Nonreactive); ~Hepatitis C Antibody Nonreactive (Nonreactive)
== END 2025-02-01 11:25 | disposition home or self-care (01) ==
LOC: HO.LAB 11:24
PROVIDERS: PCP Internal Medicine; Visit Provider Internal Medicine
DX: Z00.00 Encounter for general adult medical examination without abnormal findings (principal); R74.8 Abnormal levels of other serum enzymes; D64.9 Anemia, unspecified; R10.13 Epigastric pain; R21 Rash and other nonspecific skin eruption
CPT/HCPCS: 36415; 80053; 80061; 81003; 82390; 82607; 82728; 82746; 82784; 83036; 83090; 83540; 83921; 84443; 85027; 86015; 86364; 86381; 86704; 86706; 86803; 87340; 87389

== ENCOUNTER 2025-02-01 11:24 | Outpatient (AMB) | payer OTHER, SELFPAY ==
[2025-02-01 11:28] VITALS: BP 122/70; PULSE 83; TEMP 36.6; O2SAT 99; BMI 27.1
--- NOTE | 2025-02-01 11:28 | A.OFFPC_ITS ---
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 Accompanied by: Self / Same As Patient Allergies No Known Allergies Allergy (Verified 02/01/25 11:29) Medication List - Last Reconciled 02/01/25 by Etelvina Smith MD No Known Home Meds Tobacco use date assessed: 02/01/25 Dental Screening Dental Screen Date: 02/01/25 Did you have a dental visit in the last 12 months?: No Did you have a dental problem in the last 6 months where you did not have access to dental care?: No HPI HPI Comments History of Present Illness Details The patient is a 34 year old male with PMH of GERD presenting to [facility] and discuss several health issues, including wrist pain, stomach pain, and a skin rash. He reports taking no current medications. The patient was seen in the emergency department in May for wrist pain, where he had a negative workup including a CBC showing mild anemia (hemoglobin 13.4), a CMP with mildly elevated AST (49) and ALT (56), and negative x-rays. He was treated with prednisone and discharged. He continues to experience intermittent episodes of numbness in the wrist. He has a history of stomach pain, which is sometimes triggered by eating red meat. He states the pain can last for a week or two when it occurs. He has tried [id number] heartburn pills and milk without relief. The patient reports a history of a stomach ulcer as a child. Previously, he had a negative breathing test and was prescribed medication by another provider, which only provided minimal relief (as per the patient, no records available). The patient also reports an itchy rash in both armpits and sometimes on his lower back, which is worse in the winter due to sweating. He has tried Aveeno, Benadryl cream, and an eczema cream with little effect. The patient's past medical history is negative for surgeries. Family history is negative for colon cancer. He denies smoking cigarettes but uses marijuana and drinks alcohol on weekends. [facility] Family History (Updated 02/01/25 @ 11:36 by Mar Diaz MA) Mother No problems noted. Father No problems noted. Social History Housing: Apartment Patient Tobacco Use Status: Never used Tobacco e-Cigarette/Vaping Use: Never Used Current occupational status: employed Cognitive needs: No Hearing needs: No Vision needs: No Questionnaire PHQ-9 Over the last 2 weeks, how often have you been bothered by any of the following problems? 1. Little interest or pleasure in doing things: several days 2. Feeling down, depressed, or hopeless: not at all 3. Trouble falling or staying asleep, or sleeping too much: not at all 4. Feeling tired or having little energy: not at all 5. Poor appetite or overeating: not at all 6. Feeling bad about yourself - or that you are a failure or have let yourself or your family down: not at all 7. Trouble concentrating on things, such as reading the newspaper or watching television: not at all 8. Moving or speaking so slowly that other people could have noticed. Or the opposite - being so fidgety or restless that you have been moving around a lot more than usual: not at all 9. Thoughts that you would be better off or of hurting yourself in some way: not at all Total score: 1 Source: Developed by Drs. Luis Boyce, Lorelei Kaiser, Giorgi Meier and colleagues, with an educational jelani from [employer]. Thrive Questionnaire Date Thrive assessed: 02/01/25 I am a: Patient What is your living situation today?: I have a steady place to live Within the past 12 months, did the food you bought not last and you didn't have the money to get more?: Often true Within the past 12 months, did you worry whether your food would run out before you got money to buy more?: Never true Do you have trouble paying for medicines?: No Do you have trouble getting transportation to medical appointments?: No Do you have trouble paying your heating and electricity bill?: No Do you have trouble taking care of your child, family member or friend?: No Do you have trouble with day-to-day activities such as bathing, preparing meals, shopping, managing finances, etc.?: No Are you currently unemployed and looking for a job?: No Are you interested in more education?: No Please select the resources that you would like help with: None Currently or been in a relationship where the following occur: I choose not to answer THRIVE Score: 1 AUDIT C Alcohol Use Questionnaire (AUDIT-C) 1. How often do you have a drink containing alcohol?: Monthly or less 2. How many drinks containing alcohol do you have on a typical day when you are drinking?: 1 or 2 3. How often do you have six or more drinks on one occasion?: Less than monthly Total Score: 2 ESTHELA-7 AMB Questionnaire ESTHELA-7 Date ESTHELA - 7 assessed: 02/01/25 Feeling nervous, anxious, or on edge: 0 = Not at all Not being able to stop or control worryin = Not at all Worrying too much about different things: 0 = Not at all Trouble relaxin = Not at all Being so restless that it is hard to sit still: 0 = Not at all Becoming easily annoyed or irritable: 0 = Not at all Feeling afraid as if something awful might happen: 0 = Not at all Total ESTHELA-7 score (0-4 normal; 5-9 mild; 10-14 moderate; 15-21 severe): 0 Source: Developed by Drs. Luis Boyce, Lorelei Kaiser, Giorgi Meier and colleagues, with an educational jelani from [employer]. Review of Systems Const Details: Positives besides what was mentioned in HPI are in BOLD Constitutional: No Weight Change, No Fever, No Chills, No Night Sweats, No Fatigue, No Malaise ENT/Mouth: No Hearing Changes, No Ear Pain, No Nasal Congestion, No Sinus Pain, No Hoarseness, No sore throat, No Rhinorrhea, No Swallowing Difficulty Eyes: No Eye Pain, No Swelling, No Redness, No Foreign Body, No Discharge, No Vision Changes Cardiovascular: No Chest Pain, No SOB, No PND, No Dyspnea on Exertion, No Orthopnea, No Claudication, No Edema, No Palpitations Respiratory: No Cough, No Sputum, No Wheezing, No Smoke Exposure, No Dyspnea Gastrointestinal: No Nausea, No Vomiting, No Diarrhea, No Constipation, No Pain, No Heartburn, No Anorexia, No Dysphagia, No Hematochezia, No Melena, No Flatulence, No Jaundice Genitourinary: No Dysmenorrhea, No DUB, No Dyspareunia, No Dysuria, No Urinary Frequency, No Hematuria, No Urinary Incontinence, No Urgency, No Flank Pain, No Urinary Flow Changes, No Hesitancy Musculoskeletal: No Arthralgias, No Myalgias, No Joint Swelling, No Joint Stiffness, No Back Pain, No Neck Pain, No Injury History Skin: No Skin Lesions, No Pruritis, No Hair Changes, No Breast/Skin Changes, No Nipple Discharge Neuro: No Weakness, No Numbness, No Paresthesias, No Loss of Consciousness, No Syncope, No Dizziness, No Headache, No Coordination Changes, No Recent Falls Psych: No Anxiety/Panic, No Depression, No Insomnia, No Personality Changes, No Delusions, No Rumination, No SI/HI/AH/VH, No Social Issues, No Memory Changes, No Violence/Abuse Hx., No Eating Concerns Heme/Lymph: No Bruising, No Bleeding, No Transfusions History, No Lymphadenopathy Endocrine: No Polyuria, No Polydipsia, No Temperature Intolerance Physical exam (Primary Care) Vital Signs: Last Vital Signs Temp 97.8 F 02/01/25 11:28 Pulse 83 02/01/25 11:28 BP 122/70 02/01/25 11:28 Pulse Ox 99 02/01/25 11:28 Oxygen Delivery Method Room Air 02/01/25 11:28 BMI result Body Mass Index 27.1 Tobacco/Smoking Status: Tobacco use Status Tobacco use date assessed 02/01/25 02/01/25 11:29 Patient Tobacco Use Status Never used Tobacco 02/01/25 11:29 e-Cigarette/Vaping Use Never Used 02/01/25 11:29 PHQ-9: PHQ-9 Score PHQ-9: Total score 1 02/01/25 11:29 Thrive Assessment: Date of Thrive Assessment Date Thrive assessed 02/01/25 02/01/25 11:37 Currently or been in a relationship where the following occur: I choose not to answer Const Other: Pertinent findings are in BOLD GENERAL APPEARANCE NAD, activity normal for age, well developed/ well nourished, no cyanosis, pallor, or diaphoresis. EYES lids/conjunctiva normal. EARS/NOSE/THROAT Mucous membranes moist, nares normal, lips/teeth normal uvula midline without oral pharyngeal erythema, exudate or swelling TMs normal bilaterally. No lymphangitis/lymphedema. HEAD/NECK normocephalic atraumatic, no facial trauma, neck is supple. RESPIRATORY respiratory effort normal, speaks in full sentences, no tripod position, no accessory muscle use. Lungs clear to auscultation without rhonchi, wheezes, rales CARDIAC Regular rate and rhythm, no edema. ABDOMINAL Soft, ND/NT. No evidence of fluid wave. No pulsatile masses on exam, rebound tenderness, Key sign or pain over Mcburney's point. MUSCLES/EXTREMITIES No abnormal range of motion, no swelling. SKIN Warm, pink and dry. No rashes, dermatoses, petechiae or lesions. Bilateral armpit rash. NEUROLOGICAL Speech is clear and appropriate. Normal level of consciousness. Gait and coordination are normal. 5/5 strength in all extremities. PSYCH Normal mood and affect. Judgement/competence is appropriate Coding Level of Care Code New Pt Level 4 (49515) Diagnoses Elevated liver enzymes R74.8 Healthcare maintenance Z00.00 Dyspepsia R10.13 Rash R21 Time Spent (min) 45 Assessment & Plan Assessment & Plan (1) Elevated liver enzymes: Code(s): R74.8 - Abnormal levels of other serum enzymes Category: Medical Plan: - Comprehensive blood work ordered to investigate the cause of elevated liver enzymes noted on prior labs. - Lab panel to include tests for viral hepatitis (B, C), and HIV. - An ultrasound of the liver was also ordered. - Comprehensive blood work ordered to investigate the cause of elevated liver enzymes noted on prior labs. - Lab panel to include tests for viral hepatitis (B, C), and HIV. - An ultrasound of the liver was also ordered. (2) Healthcare maintenance: Code(s): Z00.00 - Encounter for general adult medical examination without abnormal findings Category: Medical Plan: Labs ordered. We will address the patient's vaccines, and further healthcare maintenance during his physical in 6 months. (3) Dyspepsia: Code(s): R10.13 - Epigastric pain Category: Medical Plan: - Prescribed omeprazole 40 mg. - Plan is to trial medication for two months. - If symptoms do not improve, a referral to a vegetable farmworker will be considered for further evaluation, possibly including an endoscopy. - Patient advised to track food intake to identify triggers such as red meat, spicy foods, sugars, and heavy dairy. - Follow-up scheduled in two months to assess response to treatment. (4) Rash: Comment: Bilateral armpits. Code(s): R21 - Rash and other nonspecific skin eruption Category: Medical Plan: - The patient tried OTC eczema, and moisturizing cream with no improvement. - The patient reports the rash is itchy. No signs of infection/ pus or cellulites on PE. - Clotrimazole 1% cream prescribed to be used twice daily for four weeks. Plan I explained to the patient that his stomach pain would first be treated with a trial of medication (omeprazole) for two months. I informed him that if this treatment does not resolve his symptoms, we would then proceed with further testing, such as an endoscopy, and I would refer him to a GI specialist. I emphasized that this stepwise approach is standard practice. I also explained that omeprazole is the treatment for stomach ulcers, which he has a history of. I reviewed the recent lab work from his emergency department visit, noting the elevated liver enzymes. I explained that I would be ordering comprehensive blood tests, including checks for chronic liver disease, viral hepatitis and HIV, as well as a liver ultrasound to investigate the cause. For the itchy rash, I prescribed an antifungal cream, clotrimazole 1%, to be used twice daily for four weeks. We discussed dietary triggers for his stomach pain, and I recommended he avoid sugars and red meat and keep a food log to identify patterns. We scheduled a follow-up visit in two months to review his progress and a full physical exam in six months. Orders: Orders Lipid Panel Today R74.8 - Abnormal levels of other serum enzymes, Z00.00 - Encounter for general adult medical examination without abnormal findings Immunoglobulins,IgG IgA IgM Today R74.8 - Abnormal levels of other serum enzymes, Z00.00 - Encounter for general adult medical examination without abnormal findings Hepatitis B Surface Antigen Today R74.8 - Abnormal levels of other serum enzymes, Z00.00 - Encounter for general adult medical examination without abnormal findings Hepatitis B Surface Antibody Today R74.8 - Abnormal levels of other serum enzymes, Z00.00 - Encounter for general adult medical examination without abnormal findings Hepatitis B Core Antibody Today R74.8 - Abnormal levels of other serum enzymes, Z00.00 - Encounter for general adult medical examination without abnormal findings Celiac Disease Panel Today R74.8 - Abnormal levels of other serum enzymes, Z00.00 - Encounter for general adult medical examination without abnormal findings Vitamin B12 and Folate Today D64.9 - Anemia, unspecified, R74.8 - Abnormal levels of other serum enzymes, Z00.00 - Encounter for general adult medical examination without abnormal findings Mitochondrial Antibody Today R74.8 - Abnormal levels of other serum enzymes, Z00.00 - Encounter for general adult medical examination without abnormal findings Methylmalonic Acid Today D64.9 - Anemia, unspecified, R74.8 - Abnormal levels of other serum enzymes, Z00.00 - Encounter for general adult medical examination without abnormal findings Complete Blood Count no Diff Today R74.8 - Abnormal levels of other serum enzymes, Z00.00 - Encounter for general adult medical examination without abnormal findings Comprehensive Met. Panel Today R74.8 - Abnormal levels of other serum enzymes, Z00.00 - Encounter for general adult medical examination without abnormal findings Ferritin Today R74.8 - Abnormal levels of other serum enzymes, Z00.00 - Encoun ter for general adult medical examination without abnormal findings HIV Ab/Ag Today R74.8 - Abnormal levels of other serum enzymes, Z00.00 - Encounter for general adult medical examination without abnormal findings Hepatitis C Antibody Reflex Today R74.8 - Abnormal levels of other serum enzymes, Z00.00 - Encounter for general adult medical examination without abnormal findings Hemoglobin A1c Today R74.8 - Abnormal levels of other serum enzymes, Z00.00 - Encounter for general adult medical examination without abnormal findings Ceruloplasmin Today R74.8 - Abnormal levels of other serum enzymes, Z00.00 - Encounter for general adult medical examination without abnormal findings TSH reflex Free T4 Today R74.8 - Abnormal levels of other serum enzymes, Z00.00 - Encounter for general adult medical examination without abnormal findings Smooth Muscle Antibody Today R74.8 - Abnormal levels of other serum enzymes, Z00.00 - Encounter for general adult medical examination without abnormal findings IRON PROFILE Today R74.8 - Abnormal levels of other serum enzymes, Z00.00 - Encounter for general adult medical examination without abnormal findings Homocysteine Today D64.9 - Anemia, unspecified, R74.8 - Abnormal levels of other serum enzymes, Z00.00 - Encounter for general adult medical examination without abnormal findings UA and rflx microscopic Today R74.8 - Abnormal levels of other serum enzymes, Z00.00 - Encounter for general adult medical examination without abnormal findings US abdomen bryan w elastography Today R74.8 - Abnormal levels of other serum enzymes Medications: New clotrimazole 1% (Antifungal (clotrimazole)) Apply to armpit area bilateral. 1 appl topical BID 45 grams 0RF 4 weeks omeprazole 40 mg PO DAILY 30 caps 3RF Discontinued ondansetron Discontinued Reason: Patient no longer taking 4 mg PO Q6-8H PRN 10 tabs 0RF nausea and vomiting prednisone Discontinued Reason: Patient no longer taking 40 mg (2 x 20 mg) PO DAILY 5 days 10 tabs 0RF acetaminophen (Tylenol Extra Strength) Discontinued Reason: Patient no longer taking 1,000 mg (2 x 500 mg) PO Q8H PRN 30 tabs 0RF pain
== END 2025-02-01 12:08 | disposition home or self-care (01) ==
PROVIDERS: PCP Internal Medicine; Visit Provider Internal Medicine
DX: R74.8 Abnormal levels of other serum enzymes (principal); Z00.00 Encounter for general adult medical examination without abnormal findings; R10.13 Epigastric pain; R21 Rash and other nonspecific skin eruption